=== PATIENT | female | born 1975 | race Caucasian/White ===

== ENCOUNTER 2017-01-04 09:25 | Inpatient (IN) | payer BC ==
[2017-01-04] VITALS (18 sets, daily range): BP systolic 57–126; BP diastolic 39–90; PULSE 74–169; RESP 16–20; TEMP 98.1–98.3; O2SAT 98–100
[~2017-01-04] VITALS: Ht 167.6 cm; Wt 110.0 kg
[2017-01-04] MEDS ORDERED: ADENOSINE IV SOLN 3 MG/ML 2 ML VIAL ONE ×2 (09:38→09:43)
[2017-01-04] MEDS ORDERED: SODIUM CHLOR 0.9% 1000 ML INJ 1,000 ML IV ONE (09:45)
[2017-01-04] MEDS ORDERED: SODIUM CHLORIDE 0.9% FLUSH 10 ML FLUSH IVF PRN (09:45)
--- NOTE | 2017-01-04 09:50 | PD ---
HPI Chief Complaint: Cardiac Complaint Time Seen by Provider: 09:32 Travel History International Travel<30 days: No Contact w/Intl Traveler<30days: No Traveled to known affect area: No History of Present Illness HPI 41-year-old female with history of thyroid cancer status post thyroidectomy, recent increase in her Synthroid 2 weeks ago, hemachromatosis, celiac disease, here for evaluation of tachycardia, lightheadedness, dizziness, generalized malaise. Patient also has had diarrhea and has felt nauseous. Has not vomited. Symptoms started yesterday. She denies chest pain. She does have some slight dyspnea. No fevers or recent illness. Heart rate noted to be in the 160s in triage with a blood pressure of 60/30 and the patient was brought straight back to an exam room where I evaluated her on arrival. She was noted to be in SVT with a rate of 170, and was given 6 mg of IV adenosine with conversion to sinus rhythm with a rate in the 90s. PFSH Past Medical History ?: Not Social History Tobacco Use: No Allergies-Medications (Allergen,Severity, Reaction): Coded Allergies: Tomato (Verified Allergy, Severe, Cramping, 01/04/17) GI CRAMPIMG, GAS BLOAT, SWELLING IN HANDS BLISTERS IN MOUTH BLEEDING GUMS NO GLUTEN, CELIAC DISEASE [place]ugh Nut (Verified Allergy, Intermediate, Wheezing, 01/04/17) ALLERGY TO "PINE" Reported Meds & Prescriptions Reported Meds & Active Scripts Active Reported Multiple Vitamin 1 Tab 1 Tab PO DAILY Synthroid (Levothyroxine Sodium) 112 Mcg Tab 112 Mcg PO DAILY Lisinopril 2.5 Mg Tab 20 Mg PO DAILY Review of Systems Except as stated in HPI: all other systems reviewed are Neg Physical Exam Narrative GENERAL: Well-developed, well-nourished, awake, alert, comfortable, no acute distress. SKIN: Focused skin assessment warm/dry. No rash. No pallor. HEAD: Atraumatic. Normocephalic. EYES: Pupils equal and round. No scleral icterus. No injection or drainage. ENT: Mucous membranes pink and moist. NECK: Trachea midline. No JVD. CARDIOVASCULAR: Tachycardic, regular. RESPIRATORY: No accessory muscle use. Clear to auscultation. Breath sounds equal bilaterally. GASTROINTESTINAL: Abdomen soft, non-tender, nondistended. MUSCULOSKELETAL: No obvious deformities. No clubbing. No cyanosis. No edema. NEUROLOGICAL: Awake and alert. No obvious cranial nerve deficits. Motor grossly within normal limits. Normal speech. PSYCHIATRIC: Appropriate mood and affect; insight and judgment normal. Data Data Last Documented VS Vital Signs Date Time Temp Pulse Resp B/P Pulse Ox O2 Delivery O2 Flow Rate FiO2 01/04/17 11:05 84 20 104/71 100 Room Air 01/04/17 10:44 2 01/04/17 09:27 98.1 Orders Adenosine Inj (Adenocard Inj) (01/04/17 09:38) Adenosine Inj (Adenocard Inj) (01/04/17 09:43) Basic Metabolic Panel (Bmp) (01/04/17 09:45) Ckmb (Isoenzyme) Profile (01/04/17 09:45) Complete Blood Count With Diff (01/04/17 09:45) Magnesium (Mg) (01/04/17 09:45) Prothrombin Time / Inr (Pt) (01/04/17 09:45) Act Partial Throm Time (Ptt) (01/04/17 09:45) Troponin I (01/04/17 09:45) Chest, Single Ap (01/04/17 09:45) Ecg Monitoring (01/04/17 09:45) Iv Access Insert/Monitor (01/04/17 09:45) Oximetry (01/04/17 09:45) Sodium Chloride 0.9% Flush (Ns Flush) (01/04/17 09:45) Sodium Chlor 0.9% 1000 Ml Inj (Ns 1000 M (01/04/17 09:45) Adenosine Inj (Adenocard Inj) (01/04/17 10:00) Aspirin Chew (Aspirin Chew) (01/04/17 10:30) Admit Order (Ed Use Only) (01/04/17 11:13) Labs Laboratory Tests Test 01/04/17 09:40 White Blood Count 12.8 TH/MM3 Red Blood Count 4.99 MIL/MM3 Hemoglobin 13.8 GM/DL Hematocrit 41.5 % Mean Corpuscular Volume 83.2 FL Mean Corpuscular Hemoglobin 27.7 PG Mean Corpuscular Hemoglobin 33.3 % Concent Red Cell Distribution Width 14.6 % Platelet Count 339 TH/MM3 Mean Platelet Volume 10.8 FL Neutrophils (%) (Auto) 71.6 % Lymphocytes (%) (Auto) 18.6 % Monocytes (%) (Auto) 6.4 % Eosinophils (%) (Auto) 2.0 % Basophils (%) (Auto) 1.4 % Neutrophils # (Auto) 9.1 TH/MM3 Lymphocytes # (Auto) 2.4 TH/MM3 Monocytes # (Auto) 0.8 TH/MM3 Eosinophils # (Auto) 0.3 TH/MM3 Basophils # (Auto) 0.2 TH/MM3 CBC Comment AUTO DIFF Differential Comment AUTO DIFF CONFIRMED Prothrombin Time 10.4 SEC Prothromb Time International 0.9 RATIO Ratio Activated Partial 27.0 SEC Thromboplast Time Sodium Level 140 MEQ/L Potassium Level 4.1 MEQ/L Chloride Level 109 MEQ/L Carbon Dioxide Level 22.3 MEQ/L Anion Gap 9 MEQ/L Blood Urea Nitrogen 16 MG/DL Creatinine 1.20 MG/DL Estimat Glomerular Filtration 50 ML/MIN Rate Random Glucose 117 MG/DL Calcium Level 8.6 MG/DL Magnesium Level 1.9 MG/DL Total Creatine Kinase 94 U/L Troponin I 0.34 NG/ML Free Thyroxine 1.06 NG/DL Free Triiodothyronine (T3) 1.78 PG/ML pg/dL [facility] Medical Decision Making Medical Screen Exam Complete: Yes Emergency Medical Condition: Yes Medical Record Reviewed: Yes Interpretation(s) EKG #1: SVT, rate 169, normal axis, normal intervals, nonspecific T-wave abnormality. EKG #2 sinus, rate 87, normal axis, normal intervals, nonspecific T-wave abnormality, no ST segment abnormalities. Differential Diagnosis SVT, metabolic abnormality, anemia, medication induced hyperthyroidism Narrative Course Initial vital signs show heart rate 169, blood pressure 57/39, pulse ox 99% on room air, oral temp of 98.1F Patient was noted to be in SVT on arrival. IV was promptly established, the patient was given 6 mg of IV adenosine with conversion to sinus with a rate in the 90s. Patient reported significant improvement in lightheadedness and shortness of breath. CBC shows WBC 12.8, hemoglobin 13.8, hematocrit 41.5, platelets 339. BMP is remarkable for creatinine 1.2, GFR 50, otherwise essentially unremarkable. Troponin is 0.34. Chest x-ray shows no acute disease. Patient was made aware of all findings. Again she is feeling much improved. Her blood pressure however remains low at 86/42. She is denying ever having any chest pain. Slight elevation in troponin could be secondary to the patient' s heart rate being in the 170s as opposed to NM, however given slight elevated troponin as well as hypotension, patient be admitted for further treatment and evaluation. She was given a full dose of aspirin. Case discussed with hospitalist Dr. Mina. She will like the patient to be admitted to the main hospital [facility]. She would also like me to make cardiology aware of the patient. Diagnosis Primary Impression: SVT (supraventricular tachycardia) Additional Impressions: Elevated troponin Hypotension Qualified Code: I95.9 - Hypotension, unspecified hypotension type Carlos Ross MD Jan 04, 2017 09:50
[2017-01-04 09:55] LABS: AUTOMATED NEUTROPHIL # 9.1 TH/MM3 (1.8-7.7); BASOPHIL # 0.2 TH/MM3 (0-0.2); BASOPHIL % 1.4 % (0.0-2.0); EOSINOPHIL # 0.3 TH/MM3 (0-0.4); HEMATOCRIT 41.5 % (35.0-46.0); LYMPH % 18.6 % (9.0-44.0); LYMPHOCYTE # 2.4 TH/MM3 (1.0-4.8); MEAN CELL VOLUME 83.2 FL (80.0-100.0); MEAN CORPUSCULAR HEMOGLOBIN 27.7 PG (27.0-34.0); MEAN CORPUSCULAR HGB CONC 33.3 % (32.0-36.0); MONO % 6.4 % (0.0-8.0); NEUT % 71.6 % (16.0-70.0); PLATELET COUNT 339 TH/MM3 (150-450); RED BLOOD COUNT 4.99 MIL/MM3 (4.00-5.30); RED CELL DISTRIBUTION WIDTH 14.6 % (11.6-17.2); WHITE BLOOD COUNT 12.8 TH/MM3 (4.0-11.0)
[2017-01-04 09:57] LABS: HEMO FLAGS AUTO DIFF
[2017-01-04] MEDS ORDERED: ADENOSINE IV SOLN 3 MG/ML 2 ML VIAL IV PUSH ONE (10:00)
[2017-01-04 10:04] LABS: BICARBONATE 22.3 MEQ/L (21.0-32.0); MAGNESIUM 1.9 MG/DL (1.5-2.5); POTASSIUM 4.1 MEQ/L (3.5-5.1)
[2017-01-04] MEDS ORDERED: MULTTAB67 PO (10:04)
[2017-01-04] MEDS ORDERED: SYNT112T PO (10:04)
[2017-01-04] MEDS ORDERED: LISI2.5T3 PO (10:04)
--- NOTE | 2017-01-04 10:24 | RADRPT ---
EXAM DATE/TIME: 01/04/2017 10:11 [place] COMPARISON: No previous studies available for comparison. INDICATIONS : Tachycardia, low blood pressure, short of breath. MEDICAL HISTORY : Carcinoma, thyroid. celiac disease SURGICAL HISTORY : thyroidectomy ENCOUNTER: Initial ACUITY: 2 days PAIN SCORE: 0/10 LOCATION: Bilateral chest FINDINGS: A single view of the chest demonstrates the lungs to be symmetrically aerated without evidence of mas s, infiltrate or effusion. The cardiomediastinal contours are unremarkable. Osseous structures are intact. CONCLUSION: 1. No acute cardiopulmonary disease. Mina Velasquez MD on January 04, 2017 at 10:22 Board Certified Radiologist. This report was verified electronically.
[2017-01-04] MEDS ORDERED: ASPIRIN 81 MG CHEW TAB PO ONE (10:30)
[2017-01-04 10:34] LABS: SCAN/DIFF AUTO DIFF CONFIRMED
[2017-01-04 10:43] LABS: INTERNATIONAL NORMALIZED RATIO 0.9 RATIO; PROTHROMBIN TIME - PATIENT 10.4 SEC (9.8-11.6)
[2017-01-04] MEDS ORDERED: LACTULOSE SYRUP 20 GM/30 ML CUP PO PRN (12:30)
[2017-01-04] MEDS ORDERED: MAGNESIUM HYDROXIDE SUSP 30 ML CUP PO PRN (12:30)
[2017-01-04] MEDS ORDERED: ONDANSETRON HCL 4 MG/2 ML VIAL IVP PRN (12:30)
[2017-01-04] MEDS ORDERED: SODIUM CHLORIDE 0.9% FLUSH 10 ML FLUSH IV FLUSH PRN (12:30)
[2017-01-04] MEDS ORDERED: SENNOSIDES 8.6 MG TAB PO PRN (12:30)
[2017-01-04] MEDS ORDERED: BISACODYL 10 MG SUPP RECTAL PRN (12:30)
[2017-01-04] MEDS: ENOXAPARIN SODIUM 40 MG/0.4 ML SYRINGE SQ SCH (13:15)
--- NOTE | 2017-01-04 13:36 | HHI.HP ---
[facility] Primary Care Physician Ana Sylvester M.D. Admission Diagnosis SVT, elevated troponin, hypotension Diagnoses: (1) SVT (supraventricular tachycardia) Diagnosis: Principal (2) Hypotension Diagnosis: Principal (3) Chest discomfort Diagnosis: Principal (4) Elevated troponin Diagnosis: Principal (5) Hypothyroidism Diagnosis: Secondary Chief Complaint: Heart racing, lightheadedness, dizziness, shortness of breath Travel History International Travel<30 Days: No Contact w/Intl Traveler <30 Da: No Traveled to Known Affected Are: No History of Present Illness Written by Jeffrey Marcial, acting as scribe for Dr. Mina on 01/04/17 at 13: 22. This note was transcribed by scribe Jeffrey STORY. I, Dr. Brigid Mina personally performed the history, physical exam, and medical decision making; and confirmed the accuracy of the information in the transcribed note. Authenticated by Dr. Brigid Mina on 01/04/17 at 13:22. 41-year-old female with known history of thyroid cancer status post thyroidectomy, secondary hypothyroidism, hypertension, celiac disease, hemochromatosis who presented to hospital because of heart racing, lightheadedness, dizziness, chest discomfort, shortness of breath. The patient indicates that she is undergoing treatment for her hypothyroidism by recording artist in [place]. Patient indicates that they just suggested her thyroid medications from 88>112 g 2 weeks ago. She has not had follow- up laboratory studies done at this time. Over the last couple of days she has noticed that after she takes her thyroid medication at 4:20 AM every day a few hours later she starts developing chest discomfort, heart racing, lightheadedness, dizziness. She checked her heart rate and blood pressure with the machine home and she had a tachycardia and mild low blood pressure after a while it would resolve and return to normal. She takes her HUYEN inhibitor at 10: 00 at night and her thyroid medication at 420 every morning. This morning she had the same symptoms with a chest discomfort, heart racing, lightheadedness, dizziness, shortness of breath, nausea but no vomiting. She checked her blood pressure however she thought machine is broken because it was registering too low and her heart rate was really high. She notified her to bring her to the hospital for evaluation. Patient was found to have supraventricular tachycardia with heart rate 170s and blood pressure 57/39 the patient was chemically cardioverted with adenosine. Heart rate returned to normal and blood pressure was more appropriate after cardioversion. Laboratory studies do indicate significant elevation in the troponin. Heart rate has remained stable this time. ER physician did contact cardiology who agreed that the patient needed to be admitted to the main hospital. At time evaluating the patient she is feeling quite well. She is no longer experiencing heart racing, chest discomfort, lightheadedness, dizziness, shortness of breath. Review of Systems Constitutional: DENIES: Diaphoretic episodes, Fatigue, Fever, Weight gain, Weight loss, Chills, Dizziness, Change in appetite, Night Sweats Eyes: DENIES: Blurred vision, Diplopia, Eye inflammation, Eye pain, Vision loss , Double Vision Ears, nose, mouth, throat: COMPLAINS OF: Vertigo, Oral lesions, DENIES: Hearing loss, Nasal discharge, Throat pain, Ear Pain, Running Nose, Sinus Pain Respiratory: COMPLAINS OF: Shortness of breath, DENIES: Apneas, Cough, Snoring , Wheezing, Hemoptysis, Sputum production Cardiovascular: COMPLAINS OF: Chest pain, Palpitations, DENIES: Syncope, Dyspnea on Exertion, Lower Extremity Edema, Orthopnea Gastrointestinal: COMPLAINS OF: Nausea, DENIES: Abdominal pain, Black stools, Bloody stools, Constipation, Diarrhea, Vomiting, Difficulty Swallowing, Anorexia Neurologic: DENIES: Abnormal gait, Headache, Localized weakness, Paresthesias, Seizures, Speech Problems, Tremor, Poor Balance Past Family Social History Past Medical History Secondary hypothyroidism History of thyroid cancer Hypertension Celiac disease Hemochromatosis Past Surgical History Thyroidectomy 2 Reported Medications Reported Meds & Active Scripts Active Reported Multiple Vitamin 1 Tab 1 Tab PO DAILY Synthroid (Levothyroxine Sodium) 112 Mcg Tab 112 Mcg PO DAILY Lisinopril 2.5 Mg Tab 20 Mg PO DAILY Allergies: Coded Allergies: No Known Allergies (Unverified , 01/04/17) Family History Reviewed and significant for father having heart disease and diabetes. Social History Patient denies any tobacco, alcohol or illicit drugs. Physical Exam Vital Signs Vital Signs Date Time Temp Pulse Resp B/P Pulse Ox O2 Delivery O2 Flow Rate FiO2 01/04/17 12:12 92 20 100/68 98 Room Air 01/04/17 11:05 84 20 104/71 100 Room Air 01/04/17 10:44 89 16 94/67 100 Nasal Cannula 2 01/04/17 10:07 87 16 100 Nasal Cannula 2 01/04/17 10:06 99 01/04/17 10:00 88 16 78/54 99 Nasal Cannula 2 01/04/17 09:27 98.1 169 16 57/39 99 Physical Exam GENERAL: Well-developed, well-nourished, in no acute distress. alert and orientated HEENT: Head is normocephalic without any lesions or masses noted. Facial features are symmetric. Eyes: Pupils equal round reactive to light. Extraocular muscles are intact. Conjunctivae were clear. Oropharyngeal: Pharynx without any erythema edema. Tongue is midline without deviation. Buccal mucosa is moist without any masses or lesions. Patient does have a erythematous rash noted over her face, cheeks NECK: Supple without any masses. Trachea midline no deviation. No JVD, no bruits are appreciated CARDIAC: Regular rhythm, regular rate. S1/S2 are heard. No murmurs gallops or rubs. LUNGS: Clear to auscultation bilaterally. No wheeze, rhonchi or rales. No use of accessory muscles on inspiration or expiration. ABDOMEN: Soft, nontender. Nondistended. Bowel sounds heard in all 4 quadrants. No organomegaly or masses. Negative rebound, negative guarding EXTREMITIES: No edema, pulses are equal bilaterally. No cyanosis or clubbing NEUROLOGY: Mood and affect appear appropriate. Cranial nerves II through XII grossly intact. Muscle strength 5/5 in upper and lower extremities bilaterally. Deep tendon reflexes are 2+ in upper and lower extremities bilaterally. Laboratory Laboratory Tests Test 01/04/17 01/04/17 09:40 12:40 White Blood Count 12.8 Red Blood Count 4.99 Hemoglobin 13.8 Hematocrit 41.5 Mean Corpuscular Volume 83.2 Mean Corpuscular Hemoglobin 27.7 Mean Corpuscular Hemoglobin 33.3 Concent Red Cell Distribution Width 14.6 Platelet Count 339 Mean Platelet Volume 10.8 Neutrophils (%) (Auto) 71.6 Lymphocytes (%) (Auto) 18.6 Monocytes (%) (Auto) 6.4 Eosinophils (%) (Auto) 2.0 Basophils (%) (Auto) 1.4 Neutrophils # (Auto) 9.1 Lymphocytes # (Auto) 2.4 Monocytes # (Auto) 0.8 Eosinophils # (Auto) 0.3 Basophils # (Auto) 0.2 CBC Comment AUTO DIFF Differential Comment AUTO DIFF CONFIRMED Prothrombin Time 10.4 Prothromb Time International 0.9 Ratio Activated Partial 27.0 Thromboplast Time Sodium Level 140 Potassium Level 4.1 Chloride Level 109 Carbon Dioxide Level 22.3 Anion Gap 9 Blood Urea Nitrogen 16 Creatinine 1.20 Estimat Glomerular Filtration 50 Rate Random Glucose 117 Calcium Level 8.6 Magnesium Level 1.9 Total Creatine Kinase 94 89 Troponin I 0.34 0.60 Result Diagram: 01/04/1740 01/04/17939 Imaging Last Impressions Chest X-Ray 01/04/1745 Signed Impressions: Service Date/Time: Wednesday, January 04, 2017 10:11 - CONCLUSION: 1. No acute cardiopulmonary disease. Mina Velasquez MD Assessment and Plan Assessment and Plan 41-year-old female who presented to hospital because of chest discomfort, heart racing, lightheadedness, dizziness, shortness of breath Chest discomfort, rule out acute coronary syndrome Likely secondary to supraventricular tachycardia, however patient has increased risk factors include age, family history of heart disease and elevated troponin Continue to trend cardiac enzymes which continue to worsen Continue to evaluate serial EKGs Patient was given aspirin in the emergency department Unable to use beta jim and nitroglycerin at this time due to hypotension and low blood pressure Cardiology consultation will need to be promptly done Supraventricular tachycardia, status post chemical cardioversion with adenosine Now in sinus rhythm Deferred management to radio broadcaster Hypothyroidism Patient has had recent dosage change Check TSH, free T3 free T4 Hypertension Patient with low blood pressure this time, will resume blood pressure medication when blood pressure improved DVT prevention Lovenox Physician Certification 2 Midnight Certification Type: Admission for Inpatient Services Order for Inpatient Services The services are ordered in accordance with Medicare regulations or non- Medicare payer requirements, as applicable. In the case of services not specified as inpatient-only, they are appropriately provided as inpatient services in accordance with the 2-midnight benchmark. Estimated LOS (days): 2 days is the estimated time the patient will need to remain in the hospital, assuming treatment plan goals are met and no additional complications. Post-Hospital Plan: Not yet determined Problem Qualifiers (1) Hypotension: Qualified Code: I95.9 - Hypotension, unspecified hypotension type (2) Hypothyroidism: Qualified Code: E89.0 - Postoperative hypothyroidism Jeffrey Marcial Jan 04, 2017 13:36 Brigid Mina MD Jan 04, 2017 19:43
[2017-01-04] MEDS: SODIUM CHLOR 0.9% 1000 ML INJ 1,000 ML IV SCH ×2 (14:00→22:29)
[2017-01-04 16:02] LABS: FREE T3 1.78 PG/ML (2.18-3.98); FREE T4 1.06 NG/DL (0.76-1.46)
[2017-01-04] MEDS: DOCUSATE SODIUM 50 MG/SENNA 8.6 MG TAB PO SCH (21:00)
[2017-01-04] MEDS: SODIUM CHLORIDE 0.9% FLUSH 10 ML FLUSH IV FLUSH SCH (21:00)
[2017-01-04] MEDS ORDERED: LISINOPRIL 20 MG TAB PO SCH (22:00)
--- NOTE | 2017-01-04 23:29 | MB ---
cc: LEO BARTH DO DATE OF CONSULTATION January 04, 2017 REASON FOR CONSULTATION SVT, elevated troponin. HISTORY OF PRESENT ILLNESS Dior Pantoja is a 41-year-old female who presented to [facility] Emergency Room due to palpitations and hypotension. The day before presenting to the emergency room she noted that she has had some palpitations off and on only lasting a few minutes. She was checking her heart rate with her blood pressure machine at home and it was unable to register as it said she was tachycardiac with a low blood pressure. During the episode she was feeling lightheaded but denies chest pain. She does get somewhat short of breath with these. She went to bed and then in the morning she was delivering something to her [id number]'s house and as she was driving away she started getting the palpitations and extremely lightheaded. She returned back to her [id number]'s house and decided that she should come into the emergency room as she did not feel well. On arrival she was found to be in SVT with a heart rate in the 170s and a blood pressure of 57/39. She was given adenosine and converted back to normal sinus rhythm with mild hypotension. I asked that she be transferred to [facility] for further observation. In seeing her she is currently hemodynamically stable without complaints. PAST MEDICAL HISTORY 1. Secondary hypothyroidism. 2. History of thyroid cancer. 3. Hypertension. 4. Celiac disease. 5. Hemochromatosis. PAST SURGICAL HISTORY 1. Thyroidectomy. 2. x2. ALLERGIES NO KNOWN DRUG ALLERGIES. MEDICATIONS 1. Lisinopril 20 milligrams daily. 2. Synthroid 112 micrograms daily (the patient was originally on 88 but had blood work around 4 weeks ago and her doctor increased her dose). FAMILY HISTORY Denies premature coronary artery disease or sudden cardiac within the family. SOCIAL HISTORY Denies tobacco, alcohol or illicit drug abuse. REVIEW OF SYSTEMS 14-systems were reviewed including osteopathic as above, pertinent positives and negatives above otherwise negative. PHYSICAL EXAMINATION VITAL SIGNS: Temperature 98.1, heart rate 86, blood pressure 126/90, respirations 20, pulse ox 100% on room air. GENERAL: In general the patient appears well in no acute distress, alert, awake and oriented x3. Extraocular muscles intact. Mucous membranes moist. NECK: Supple. No JVD at 45 degrees. No carotid bruits heard bilaterally. Carotid upstroke is brisk in nature. HEART: Heart is regular rate and rhythm. Positive first and second heart sounds with no murmurs, gallops or rubs. PMI is nondisplaced. LUNGS: Clear to auscultation bilaterally. No wheezes, rales or rhonchi. ABDOMEN: Abdomen is soft, nontender, nondistended. No organomegaly noted. EXTREMITIES: Show no clubbing, cyanosis or edema. Femoral and distal pulses intact bilaterally. NEUROLOGICALLY: No focal deficits. SKIN: Warm, dry and intact. OSTEOPATHIC: No kyphoscoliosis, lordosis or paraspinal tender points. LABORATORY FINDINGS Hemoglobin 13.8, hematocrit 41.5, platelets 339. Potassium 4.1, BUN 16, creatinine 1.2. Troponin 0.34 increasing to 0.6. TSH 20, free T3 1.78, free T4 1.06. 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 Electrocardiogram (January 04, 2017 at 09:44) sinus rhythm at 87 beats per minute, nonspecific ST-T wave changes. IMPRESSION 1. SVT status post conversion to normal sinus rhythm with adenosine, most likely AVNRT. 2. Hypothyroidism secondary to thyroid surgery for thyroid cancer. 3. Palpitations and shortness of breath secondary to SVT. 4. Elevated troponin most likely secondary to SVT with hypotension. 5. Hypotension secondary to SVT. 6. History of hypertension. 7. Acute kidney injury. RECOMMENDATIONS 1. Mrs. Pantoja appears to have had an episode of SVT which appears to be AVNRT which has been converted with adenosine. 2. We will plan on placing her on low-dose beta jim for now. 3. She will be placed on an aspirin 81 milligrams due to her elevated troponin which I feel is secondary to her SVT and hypotension. 4. Will obtain a 2-D echo to look for overall left ventricular function, cardiac structure and possible valvulopathies. 5. Lisinopril will be held for now until we make sure that her creatinine has stabilized. 6. We will plan a pharmacologic nuclear stress test due to her elevated troponin to rule out underlying coronary artery disease. 7. Depending on her hospital course she will need follow-up inpatient versus outpatient with Dr. Martínez for consideration of AVNRT ablation. Thank you for allowing me to see Dior Pantoja. If there are any questions please do not hesitate to call. Leo Barth DO VGP/EO /10:37 PM /11:09 PM
[2017-01-04] MEDS: METOPROLOL TARTRATE 25 MG TAB PO SCH (23:42)
[2017-01-05] VITALS (24 sets, daily range): BP systolic 100–134; BP diastolic 62–84; PULSE 60–80; RESP 14–21; TEMP 97.4–97.7; O2SAT 98–100
[2017-01-05 02:05] LABS: BETA HCG QUANT LESS THAN 1 MIU/ML (0-5)
[2017-01-05] MEDS: LEVOTHYROXINE SODIUM 112 MCG TAB PO SCH ×2 (04:14→04:34)
[2017-01-05 05:44] LABS: AUTOMATED NEUTROPHIL # 5.6 TH/MM3 (1.8-7.7); BASOPHIL # 0.1 TH/MM3 (0-0.2); BASOPHIL % 0.8 % (0.0-2.0); EOSINOPHIL # 0.3 TH/MM3 (0-0.4); EOSINOPHIL % 3.5 % (0.0-4.0); HEMATOCRIT 35.2 % (35.0-46.0); HEMO FLAGS DIFF FINAL; LYMPH % 25.4 % (9.0-44.0); LYMPHOCYTE # 2.2 TH/MM3 (1.0-4.8); MEAN CORPUSCULAR HEMOGLOBIN 27.3 PG (27.0-34.0); MEAN CORPUSCULAR HGB CONC 31.7 % (32.0-36.0); MONO % 7.1 % (0.0-8.0); NEUT % 63.2 % (16.0-70.0); PLATELET COUNT 236 TH/MM3 (150-450); RED CELL DISTRIBUTION WIDTH 15.3 % (11.6-17.2); WHITE BLOOD COUNT 8.8 TH/MM3 (4.0-11.0)
[2017-01-05 06:00] LABS: ANION GAP 8 MEQ/L (5-15); AST (GOT) 12 U/L (15-37); BICARBONATE 23.7 MEQ/L (21.0-32.0); BLOOD UREA NITROGEN 19 MG/DL (7-18); CHLORIDE 108 MEQ/L (98-107); GLOMERULAR FILTRATION RATE 51 ML/MIN (>89); POTASSIUM 4.1 MEQ/L (3.5-5.1); SODIUM (NA) 140 MEQ/L (136-145)
[2017-01-05 06:01] LABS: ALT (GPT) 25 U/L (10-53)
[2017-01-05 06:04] LABS: ALKALINE PHOSPHATASE 47 U/L (45-117); TOTAL BILIRUBIN ADULT 0.3 MG/DL (0.2-1.0)
[2017-01-05] MEDS: SODIUM CHLOR 0.9% 1000 ML INJ 1,000 ML IV SCH ×2 (08:29→11:16)
[2017-01-05] MEDS ORDERED: LISINOPRIL 20 MG TAB PO SCH (09:00)
[2017-01-05] MEDS ORDERED: LEVOTHYROXINE SODIUM 112 MCG TAB PO SCH (09:00)
[2017-01-05] MEDS: DOCUSATE SODIUM 50 MG/SENNA 8.6 MG TAB PO SCH ×2 (09:00→21:00)
[2017-01-05] MEDS: SODIUM CHLORIDE 0.9% FLUSH 10 ML FLUSH IV FLUSH SCH ×3 (09:00→21:44)
[2017-01-05] MEDS: MULTIVITAMIN TAB PO SCH ×3 (09:00→09:28)
[2017-01-05] MEDS: ASPIRIN 81 MG CHEW TAB CHEW SCH (09:25)
[2017-01-05] MEDS: METOPROLOL TARTRATE 25 MG TAB PO SCH ×2 (09:25→21:44)
--- NOTE | 2017-01-05 10:46 | PD.CARD.PN ---
Subjective Subjective Remarks No events overnight, no chest pain, no shortness of breath Telemetry showing normal sinus rhythm Objective Medications Current Medications Medications (Trade) Dose Ordered Sig/Adelfo Route Start Time Stop Time Status Last Admin (NS 1000 ml Inj) 1,000 ml @ 100 mls/hr Q10H IV 01/04/17 12:29 01/05/17 08:29 (NS Flush) 2 ml UNSCH PRN IV FLUSH 01/04/17 12:30 (NS Flush) 2 ml BID IV FLUSH 01/04/17 21:00 (Tylenol) 650 mg Q4H PRN PO 01/04/17 12:30 (Zofran Inj) 4 mg Q6H PRN IVP 01/04/17 12:30 (Lovenox Inj) 40 mg Q24H SQ 01/04/17 13:00 01/04/17 13:15 (Josi-Colace) 1 tab BID PO 01/04/17 21:00 (Milk Of Magnesia Liq) 30 ml Q12H PRN PO 01/04/17 12:30 (Senokot) 17.2 mg Q12H PRN PO 01/04/17 12:30 (Dulcolax Supp) 10 mg DAILY PRN RECTAL 01/04/17 12:30 (Lactulose Liq) 30 ml DAILY PRN PO 01/04/17 12:30 (Pneumovax-23 Inj) 25 mcg ONCE ONCE IM 01/06/17 15:00 01/06/17 15:01 (Theragran) 1 tab DAILY PO 01/05/17 09:00 (Synthroid) 112 mcg DAILY@07 PO 01/05/17 04:20 01/05/17 04:14 (Prinivil) 20 mg DAILY PO 01/04/17 22:00 Hold 01/04/17 21:55 (Aspirin Chew) 81 mg DAILY CHEW 01/05/17 09:00 01/05/17 09:25 (Lopressor) 12.5 mg Q12HR PO 01/04/17 22:45 01/05/17 09:25 Vital Signs / I&O Vital Signs Date Time Temp Pulse Resp B/P Pulse Ox O2 Delivery O2 Flow Rate FiO2 01/05/17 10:00 71 01/05/17 09:00 72 01/05/17 08:00 72 01/05/17 07:15 69 01/05/17 07:15 70 17 107/71 100 01/05/17 06:00 64 01/05/17 05:00 66 01/05/17 04:16 97.7 77 14 100/62 98 01/05/17 04:00 71 01/05/17 03:00 66 01/05/17 02:00 72 01/05/17 01:00 72 01/05/17 00:00 73 01/04/17 23:57 79 18 108/68 100 01/04/17 23:00 76 01/04/17 22:00 74 01/04/17 21:00 82 01/04/17 20:00 87 01/04/17 20:00 98.3 85 18 112/85 99 01/04/17 20:00 87 01/04/17 19:00 88 01/04/17 18:00 90 01/04/17 18:00 90 01/04/17 17:00 82 01/04/17 17:00 82 01/04/17 16:00 88 01/04/17 16:00 88 01/04/17 15:00 98.1 87 20 126/90 100 01/04/17 15:00 86 01/04/17 15:00 82 01/04/17 14:00 87 01/04/17 13:20 92 20 90/60 98 01/04/17 12:12 92 20 100/68 98 Room Air 01/04/17 11:05 84 20 104/71 100 Room Air 01/04/17 10:44 89 16 94/67 100 Nasal Cannula 2 I/O 01/04/17 01/04/17 01/04/17 01/05/17 01/05/17 01/05/17 07:00 15:00 23:00 07:00 15:00 23:00 Intake Total 1000 ml 927 ml 1372 ml Output Total 650 ml Balance 1000 ml 927 ml 722 ml Intake Oral 600 ml 480 ml IV Total 1000 ml 327 ml 892 ml Output Urine Total 650 ml # Voids 2 # Bowel Movements 0 Physical Exam GENERAL: NAD, AAOx3 SKIN: Warm and dry. HEAD: Atraumatic. Normocephalic. EYES: Pupils equal and round. No scleral icterus. No injection or drainage. ENT: No nasal bleeding or discharge. Mucous membranes pink and moist. NECK: Trachea midline. No JVD. CARDIOVASCULAR: Regular rate and rhythm. RESPIRATORY: No accessory muscle use. Clear to auscultation. Breath sounds equal bilaterally. GASTROINTESTINAL: Abdomen soft, non-tender, nondistended. Hepatic and splenic margins not palpable. MUSCULOSKELETAL: Extremities without clubbing, cyanosis, or edema. No obvious deformities. NEUROLOGICAL: Awake and alert. No obvious cranial nerve deficits. Motor grossly within normal limits. Five out of 5 muscle strength in the arms and legs. Normal speech. PSYCHIATRIC: Appropriate mood and affect; insight and judgment normal. Laboratory Laboratory Tests Test 01/04/17 01/04/17 01/05/17 12:40 18:34 03:29 Total Creatine Kinase 89 U/L 84 U/L Troponin I 0.60 NG/ML 0.59 NG/ML Thyroid Stimulating Hormone 20.200 uIU/ML 3rd Gen Human Chorionic Gonadotropin, LESS THAN 1 Quant MIU/ML White Blood Count 8.8 TH/MM3 Red Blood Count 4.10 MIL/MM3 Hemoglobin 11.2 GM/DL Hematocrit 35.2 % Mean Corpuscular Volume 86.0 FL Mean Corpuscular Hemoglobin 27.3 PG Mean Corpuscular Hemoglobin 31.7 % Concent Red Cell Distribution Width 15.3 % Platelet Count 236 TH/MM3 Mean Platelet Volume 10.9 FL Neutrophils (%) (Auto) 63.2 % Lymphocytes (%) (Auto) 25.4 % Monocytes (%) (Auto) 7.1 % Eosinophils (%) (Auto) 3.5 % Basophils (%) (Auto) 0.8 % Neutrophils # (Auto) 5.6 TH/MM3 Lymphocytes # (Auto) 2.2 TH/MM3 Monocytes # (Auto) 0.6 TH/MM3 Eosinophils # (Auto) 0.3 TH/MM3 Basophils # (Auto) 0.1 TH/MM3 CBC Comment DIFF FINAL Differential Comment Sodium Level 140 MEQ/L Potassium Level 4.1 MEQ/L Chloride Level 108 MEQ/L Carbon Dioxide Level 23.7 MEQ/L Anion Gap 8 MEQ/L Blood Urea Nitrogen 19 MG/DL Creatinine 1.16 MG/DL Estimat Glomerular Filtration 51 ML/MIN Rate Random Glucose 87 MG/DL Calcium Level 8.1 MG/DL Total Bilirubin 0.3 MG/DL Aspartate Amino Transf 12 U/L (AST/SGOT) Alanine Aminotransferase 25 U/L (ALT/SGPT) Alkaline Phosphatase 47 U/L Total Protein 5.7 GM/DL Albumin 3.1 GM/DL Assessment and Plan Problem List: (1) SVT (supraventricular tachycardia) (2) Elevated troponin (3) Hypotension (4) Chest discomfort (5) Hypothyroidism Assessment and Plan 1) SVT, 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 Martínez for consideration of ablation Con't Lopressor Problem Qualifiers (1) Hypotension: Qualified Code: I95.9 - Hypotension, unspecified hypotension type (2) Hypothyroidism: Qualified Code: E89.0 - Postoperative hypothyroidism Leo Suresh DO Jan 05, 2017 10:46
[2017-01-05] MEDS: ENOXAPARIN SODIUM 40 MG/0.4 ML SYRINGE SQ SCH (12:15)
[2017-01-05] MEDS ORDERED: REGADENOSON INJ 0.4 MG/5 ML SYR ONE (13:21)
--- NOTE | 2017-01-05 14:52 | RADRPT ---
EXAM DATE/TIME: 01/05/2017 12:59 [facility] COMPARISON: No previous studies available for comparison. INDICATIONS : Supraventricular tachycardia with shortness of breath and palpitations for one day. Abnormal EKG. DOSE: 31.1 mCi Tc99m Myoview at stress. 10.1 mCi Tc99m Myoview at rest. 0.4 mg Lexiscan STRESS SYMPTOMS: Chest tightness. EJECTION FRACTION: 68% MEDICAL HISTORY : Carcinoma, thyroid. Hypertension. SURGICAL HISTORY : Thyroidectomy. section. ENCOUNTER: Initial ACUITY: 1 day PAIN SCALE: 0/10 LOCATION: Midsternal chest TECHNIQUE: The patient underwent pharmacologic stress with infusion of prescribed dose. Continuous ECG tracing was monitored during stress. Gated SPECT imaging was performed after stress and conventional SPECT i maging was performed at rest. The examination was performed on a SPECT/CT scanner, both attenuation and non-corrected datasets were reviewed. FINDINGS: DISTRIBUTION: The maximum perfused segment at stress is in the inferior wall. PERFUSION STUDY: No significant reversibility. GATED STUDY: There is intact wall motion and thickening without hypokinetic or dyskinetic segments. CONCLUSION: 1. No reversible perfusion defects to suggest ischemia. 2. Normal ejection fraction. RISK CATEGORY: Low (<1% Annual Mortality Rate) Artie Turcios MD on January 05, 2017 at 14:48 Board Certified Radiologist. This report was verified electronically.
--- NOTE | 2017-01-05 15:04 | HHI.PR ---
Subjective Remarks Follow up for SVT, dizziness, lightheadedness, nausea. Patient is doing well. She is undergoing nuclear stress test. Currently, denies any chest pain, shortness of breath, fever, chills. Objective Vitals Vital Signs Date Time Temp Pulse Resp B/P Pulse Ox O2 Delivery O2 Flow Rate FiO2 01/05/17 12:02 60 01/05/17 11:06 97.4 60 18 125/74 100 01/05/17 11:04 100 21 01/05/17 11:00 72 01/05/17 10:00 71 01/05/17 09:00 72 01/05/17 08:00 72 01/05/17 07:15 69 01/05/17 07:15 70 17 107/71 100 01/05/17 06:00 64 01/05/17 05:00 66 01/05/17 04:16 97.7 77 14 100/62 98 01/05/17 04:00 71 01/05/17 03:00 66 01/05/17 02:00 72 01/05/17 01:00 72 01/05/17 00:00 73 01/04/17 23:57 79 18 108/68 100 01/04/17 23:00 76 01/04/17 22:00 74 01/04/17 21:00 82 01/04/17 20:00 87 01/04/17 20:00 98.3 85 18 112/85 99 01/04/17 20:00 87 01/04/17 19:00 88 01/04/17 18:00 90 01/04/17 18:00 90 01/04/17 17:00 82 01/04/17 17:00 82 01/04/17 16:00 88 01/04/17 16:00 88 I/O 01/04/17 01/04/17 01/04/17 01/05/17 01/05/17 01/05/17 06:59 14:59 22:59 06:59 14:59 22:59 Intake Total 1000 ml 927 ml 1372 ml Output Total 650 ml Balance 1000 ml 927 ml 722 ml Intake Oral 600 ml 480 ml IV Total 1000 ml 327 ml 892 ml Output Urine Total 650 ml # Voids 2 # Bowel Movements 0 Result Diagram: 01/05/17 0329 01/05/17328 Imaging Last Impressions Myocardial Perfusion Scan Nuc Med 01/05/17 0000 Signed Impressions: Service Date/Time: Thursday, January 05, 2017 12:59 - CONCLUSION: 1. No reversible perfusion defects to suggest ischemia. 2. Normal ejection fraction. RISK CATEGORY: Low (<1%% Annual Mortality Rate) Artie Turcios MD Chest X-Ray 01/04/17 0945 Signed Impressions: Service Date/Time: Wednesday, January 04, 2017 10:11 - CONCLUSION: 1. No acute cardiopulmonary disease. Mina Velasquez MD Objective Remarks GENERAL: Alert, oriented x 3, NAD. SKIN: Warm and dry. HEAD: Normocephalic. EYES: No scleral icterus. No injection or drainage. NECK: Supple, trachea midline. No JVD or lymphadenopathy. CARDIOVASCULAR: Regular rate and rhythm without murmurs, gallops, or rubs. RESPIRATORY: Breath sounds equal bilaterally. No accessory muscle use. GASTROINTESTINAL: Abdomen soft, non-tender, nondistended. MUSCULOSKELETAL: No cyanosis, or edema. BACK: Nontender without obvious deformity. No CVA tenderness. Procedures None. A/P Problem List: (1) SVT (supraventricular tachycardia) ICD Code: I47.1 Status: Acute (2) Hypotension ICD Code: I95.9 Status: Acute (3) Chest discomfort ICD Code: R07.89 Status: Acute (4) Elevated troponin ICD Code: R74.8 Status: Acute (5) Hypothyroidism ICD Code: E03.9 Status: Acute Assessment and Plan Ms. Pantoja is a 41 year old female with a history of thyroid cancer s/p thyroidectomy who was admitted to the hospital due to SVT, dizziness, lightheadedness, nausea. Patient underwent nuclear stress test on 01/05/2017 which did not show any abnormalities. - Supraventricular tachycardia, likely AVNRT. - Currently in normal sinus rhythm. - Probably needs an EP eval. - Continue metoprolol 12.5 mg by mouth every 12 hours. - Continue aspirin 81 mg daily. - Cardiology is following. - Elevated troponins - likely due to supraventricular tachycardia. - History of recently diagnosed thyroid cancer - s/p Thyroidectomy. - Hemochromatosis - Patient is being followed by Dr. Luis Diaz. - Hypothyroidism - continue levothyroxine 112 g daily. Full code. Lovenox. Problem Qualifiers (1) Hypotension: Qualified Code: I95.9 - Hypotension, unspecified hypotension type (2) Hypothyroidism: Qualified Code: E89.0 - Postoperative hypothyroidism Augie Shaw DO Jan 05, 2017 3:04 pm
--- NOTE | 2017-01-05 16:12 | EKG ---
Date Performed: 01/04/2017 Time Performed: 21:24:46 PTAGE: 41 years EKG: Sinus rhythm . Poor R wave progression - probable normal variant Anterior T wave changes are nonspecific Low QRS v oltages in precordial leads Baseline artifact Borderline ECG PREVIOUS TRACING : 01/04/2017 13.15 Compared to prior tracing no significant change DOCTOR: Leo Suresh Interpretating Date/Time 01/05/2017 16:11:49
--- NOTE | 2017-01-05 16:54 | EKG ---
Date Performed: 01/04/2017 Time Performed: 13:15:58 PTAGE: 41 years EKG: Sinus rhythm NONSPECIFIC T-WAVE ABNORMALITY BORDERLINE ECG PREVIOUS TRACING : 01/04/2017 09.44 Compared to prior tracing no significant change DOCTOR: Leo Suresh Interpretating Date/Time 01/05/2017 16:53:09
--- NOTE | 2017-01-05 17:03 | EKG ---
Date Performed: 01/04/2017 Time Performed: 09:44:23 PTAGE: 41 years EKG: Sinus rhythm NONSPECIFIC T-WAVE ABNORMALITY BORDERLINE ECG PREVIOUS TRACING : 01/04/2017 09.35 Compared to the previous tracing, sinus rhythm has replaced SVT DOCTOR: Leo Suresh Interpretating Date/Time 01/05/2017 17:02:10
--- NOTE | 2017-01-05 17:04 | EKG ---
Date Performed: 01/04/2017 Time Performed: 09:35:56 PTAGE: 41 years EKG: SUPRAVENTRICULAR TACHYCARDIA, POSSIBLE AVNRT NONSPECIFIC T-WAVE ABNORMALITY ABNORMAL RHYTHM ECG NO PREVIOUS TRACING DOCTOR: Leo Suresh Interpretating Date/Time 01/05/2017 17:02:28
[2017-01-05] MEDS: ACETAMINOPHEN 325 MG TAB PO PRN (21:44)
[2017-01-06] VITALS (22 sets, daily range): BP systolic 116–128; BP diastolic 73–83; PULSE 53–91; RESP 14–20; TEMP 97.5–98.4; O2SAT 98–100
[2017-01-06] MEDS: SODIUM CHLOR 0.9% 1000 ML INJ 1,000 ML IV SCH ×2 (04:21→14:29)
[2017-01-06] MEDS: LEVOTHYROXINE SODIUM 112 MCG TAB PO SCH (04:32)
[2017-01-06] MEDS: ACETAMINOPHEN 325 MG TAB PO PRN (06:30)
[2017-01-06] MEDS: ASPIRIN 81 MG CHEW TAB CHEW SCH (08:40)
[2017-01-06] MEDS: METOPROLOL TARTRATE 25 MG TAB PO SCH (08:40)
[2017-01-06] MEDS: DOCUSATE SODIUM 50 MG/SENNA 8.6 MG TAB PO SCH ×2 (08:41→21:00)
[2017-01-06] MEDS: MULTIVITAMIN TAB PO SCH (08:41)
--- NOTE | 2017-01-06 11:44 | PD.CARD.PN ---
Subjective Subjective Remarks No events overnight No chest pain, no shortness of breath +back pain Objective Medications Current Medications Medications (Trade) Dose Ordered Sig/Adelfo Route Start Time Stop Time Status Last Admin (NS 1000 ml Inj) 1,000 ml @ 100 mls/hr Q10H IV 01/04/17 12:29 01/05/17 11:16 (NS Flush) 2 ml UNSCH PRN IV FLUSH 01/04/17 12:30 (NS Flush) 2 ml BID IV FLUSH 01/04/17 21:00 01/05/17 21:44 (Tylenol) 650 mg Q4H PRN PO 01/04/17 12:30 01/06/17 06:30 (Zofran Inj) 4 mg Q6H PRN IVP 01/04/17 12:30 (Lovenox Inj) 40 mg Q24H SQ 01/04/17 13:00 01/04/17 13:15 (Josi-Colace) 1 tab BID PO 01/04/17 21:00 (Milk Of Magnesia Liq) 30 ml Q12H PRN PO 01/04/17 12:30 (Senokot) 17.2 mg Q12H PRN PO 01/04/17 12:30 (Dulcolax Supp) 10 mg DAILY PRN RECTAL 01/04/17 12:30 (Lactulose Liq) 30 ml DAILY PRN PO 01/04/17 12:30 (Pneumovax-23 Inj) 25 mcg ONCE ONCE IM 01/06/17 15:00 01/06/17 15:01 (Theragran) 1 tab DAILY PO 01/05/17 09:00 (Synthroid) 112 mcg DAILY@07 PO 01/05/17 04:20 01/06/17 04:32 (Prinivil) 20 mg DAILY PO 01/04/17 22:00 Hold 01/04/17 21:55 (Aspirin Chew) 81 mg DAILY CHEW 01/05/17 09:00 01/06/17 08:40 (Lopressor) 12.5 mg Q12HR PO 01/04/17 22:45 01/06/17 08:40 (Flexeril) 10 mg Q8HR PO 01/06/17 12:00 (Ultram) 50 mg Q8HR PRN PO 01/06/17 11:30 Vital Signs / I&O Vital Signs Date Time Temp Pulse Resp B/P Pulse Ox O2 Delivery O2 Flow Rate FiO2 01/06/17 11:00 97.6 72 19 126/83 100 01/06/17 11:00 53 01/06/17 10:00 67 01/06/17 09:00 72 01/06/17 08:12 19 01/06/17 08:00 76 01/06/17 07:15 91 01/06/17 07:00 97.5 73 20 122/77 100 01/06/17 06:00 73 01/06/17 04:30 98.4 63 18 128/73 99 01/06/17 04:00 01/06/17 04:00 80 01/06/17 00:00 75 01/05/17 23:00 97.5 75 18 108/64 99 01/05/17 23:00 80 01/05/17 22:00 78 01/05/17 20:00 70 01/05/17 20:00 97.5 70 18 118/76 100 01/05/17 18:01 73 01/05/17 17:55 99 21 01/05/17 17:44 79 01/05/17 16:00 80 01/05/17 15:00 97.7 80 21 134/84 100 01/05/17 15:00 75 01/05/17 12:02 60 I/O 01/05/17 01/05/17 01/05/17 01/06/17 01/06/17 01/06/17 07:00 15:00 23:00 07:00 15:00 23:00 Intake Total 1372 ml 1130 ml 240 ml Output Total 650 ml 1500 ml Balance 722 ml -370 ml 240 ml Intake Oral 480 ml 120 ml 240 ml IV Total 892 ml 1010 ml Output Urine Total 650 ml 1500 ml # Voids 3 # Bowel Movements 0 1 0 Physical Exam GENERAL: NAD, AAOx3 SKIN: Warm and dry. HEAD: Atraumatic. Normocephalic. EYES: Pupils equal and round. No scleral icterus. No injection or drainage. ENT: No nasal bleeding or discharge. Mucous membranes pink and moist. NECK: Trachea midline. No JVD. CARDIOVASCULAR: Regular rate and rhythm. RESPIRATORY: No accessory muscle use. Clear to auscultation. Breath sounds equal bilaterally. GASTROINTESTINAL: Abdomen soft, non-tender, nondistended. Hepatic and splenic margins not palpable. MUSCULOSKELETAL: Extremities without clubbing, cyanosis, or edema. No obvious deformities. NEUROLOGICAL: Awake and alert. No obvious cranial nerve deficits. Motor grossly within normal limits. Five out of 5 muscle strength in the arms and legs. Normal speech. PSYCHIATRIC: Appropriate mood and affect; insight and judgment normal. 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 Martínez, EP cardiology, to see the patient and consider ablation tomorrow Problem Qualifiers (1) Hypotension: Qualified Code: I95.9 - Hypotension, unspecified hypotension type (2) Hypothyroidism: Qualified Code: E89.0 - Postoperative hypothyroidism Leo Suresh DO Jan 06, 2017 11:44
[2017-01-06] MEDS: traMADol HCL 50 MG TAB PO PRN ×2 (11:50→21:39)
[2017-01-06] MEDS: CYCLOBENZAPRINE HCL 10 MG TAB PO SCH ×3 (12:41→21:38)
[2017-01-06] MEDS: ENOXAPARIN SODIUM 40 MG/0.4 ML SYRINGE SQ SCH (12:41)
--- NOTE | 2017-01-06 13:55 | HHI.PR ---
Subjective Remarks Follow-up for symptomatic supraventricular tachycardia. Patient is currently doing well. She is in sinus rhythm. No chest pain, shortness of breath, fever or chills. Objective Vitals Vital Signs Date Time Temp Pulse Resp B/P Pulse Ox O2 Delivery O2 Flow Rate FiO2 01/06/17 12:41 20 01/06/17 12:00 75 01/06/17 11:00 97.6 72 19 126/83 100 01/06/17 11:00 53 01/06/17 10:00 67 01/06/17 09:00 72 01/06/17 08:12 19 01/06/17 08:00 76 01/06/17 07:15 91 01/06/17 07:00 97.5 73 20 122/77 100 01/06/17 06:00 73 01/06/17 04:30 98.4 63 18 128/73 99 01/06/17 04:00 01/06/17 04:00 80 01/06/17 00:00 75 01/05/17 23:00 97.5 75 18 108/64 99 01/05/17 23:00 80 01/05/17 22:00 78 01/05/17 20:00 70 01/05/17 20:00 97.5 70 18 118/76 100 01/05/17 18:01 73 01/05/17 17:55 99 21 01/05/17 17:44 79 01/05/17 16:00 80 01/05/17 15:00 97.7 80 21 134/84 100 01/05/17 15:00 75 I/O 01/05/17 01/05/17 01/05/17 01/06/17 01/06/17 01/06/17 07:00 15:00 23:00 07:00 15:00 23:00 Intake Total 1372 ml 1130 ml 240 ml Output Total 650 ml 1500 ml Balance 722 ml -370 ml 240 ml Intake Oral 480 ml 120 ml 240 ml IV Total 892 ml 1010 ml Output Urine Total 650 ml 1500 ml # Voids 3 # Bowel Movements 0 1 0 Result Diagram: 01/05/17 0329 01/05/17 0329 Imaging Last Impressions Myocardial Perfusion Scan Nuc Med 01/05/17 0000 Signed Impressions: Service Date/Time: Thursday, January 05, 2017 12:59 - CONCLUSION: 1. No reversible perfusion defects to suggest ischemia. 2. Normal ejection fraction. RISK CATEGORY: Low (<1%% Annual Mortality Rate) Artie Turcios MD Chest X-Ray 01/04/17 0945 Signed Impressions: Service Date/Time: Saturday, January 04, 2017 10:11 - CONCLUSION: 1. No acute cardiopulmonary disease. Mina Velasquez MD Objective Remarks GENERAL: Alert, oriented x 3, NAD. SKIN: Warm and dry. HEAD: Normocephalic. EYES: No scleral icterus. No injection or drainage. NECK: Supple, trachea midline. No JVD or lymphadenopathy. CARDIOVASCULAR: Regular rate and rhythm without murmurs, gallops, or rubs. RESPIRATORY: Breath sounds equal bilaterally. No accessory muscle use. GASTROINTESTINAL: Abdomen soft, non-tender, nondistended. MUSCULOSKELETAL: No cyanosis, or edema. BACK: Nontender without obvious deformity. No CVA tenderness. Procedures None. A/P Problem List: (1) SVT (supraventricular tachycardia) ICD Code: I47.1 Status: Acute (2) Hypotension ICD Code: I95.9 Status: Acute (3) Chest discomfort ICD Code: R07.89 Status: Acute (4) Elevated troponin ICD Code: R74.8 Status: Acute (5) Hypothyroidism ICD Code: E03.9 Status: Acute Assessment and Plan Ms. Pantoja is a 41 year old female with a history of thyroid cancer s/p thyroidectomy who was admitted to the hospital due to SVT, dizziness, lightheadedness, nausea. Patient underwent nuclear stress test on 01/05/2017 which did not show any abnormalities. - Supraventricular tachycardia, likely AVNRT. - Currently in normal sinus rhythm. - Electrophysiology evaluation likely on 01/07/2017. Patient may need an ablation. - Continue metoprolol 12.5 mg by mouth every 12 hours. - Continue aspirin 81 mg daily. - Cardiology is following. - Elevated troponins - likely due to supraventricular tachycardia. - History of recently diagnosed thyroid cancer - s/p Thyroidectomy. - Hemochromatosis - Patient is being followed by Dr. Luis Diaz. - Hypothyroidism - continue levothyroxine 112 g daily. - Chronic back pain, muscle spasm - We'll start patient on Flexeril 10 mg 3 times a day when necessary, tramadol 50 mg every 8 hours when necessary Full code. Lovenox. Problem Qualifiers (1) Hypotension: Qualified Code: I95.9 - Hypotension, unspecified hypotension type (2) Hypothyroidism: Qualified Code: E89.0 - Postoperative hypothyroidism Augie Shaw DO Jan 06, 2017 1:55 pm
[2017-01-06] MEDS ORDERED: traMADol HCL 50 MG TAB PO PRN (14:00)
[2017-01-06] MEDS ORDERED: CYCLOBENZAPRINE HCL 10 MG TAB PO SCH (14:00)
[2017-01-06] MEDS ORDERED: PNEUMOCOCCAL POLYVALENT INJ 25 MCG/0.5 ML SYR IM ONE (15:00)
--- NOTE | 2017-01-06 15:58 | ECHRPT ---
Indication: Supraventricular tachycardia CONCLUSIONS Normal left ventricular size and wall thickness. The left ventricular systolic function is normal wi th an estimated ejection fraction in the range of 60-65%. Left ventricular diastolic function parameters a re normal. There is trace tricuspid valve regurgitation. The estimated pulmonary arterial pressure is 27 mmHg. BP: / HR: 73 Rhythm: Sinus MEASUREMENTS (Male / Female) Normal Values Technical Quality:Good 2D ECHO LV Diastolic Diameter PLAX 4.5 cm 4.2 - 5.9 / 3.9 - 5.3 cm LV Systolic Diameter PLAX 3.2 cm IVS Diastolic Thickness 1.0 cm 0.6 - 1.0 / 0.6 - 0.9 cm LVPW Diastolic Thickness 1.0 cm 0.6 - 1.0 / 0.6 - 0.9 cm LV Relative Wall Thickness 0.4 LVOT Diameter 2.0 cm M-MODE Aortic Root Diameter MM 2.9 cm LA Systolic Diameter MM 3.3 cm LA Ao Ratio MM 1.1 AV Cusp Separation MM 2.1 cm DOPPLER AV Peak Velocity 121.0 cm/s AV Peak Gradient 5.9 mmHg LVOT Peak Velocity 119.0 cm/s LVOT Peak Gradient 5.7 mmHg AV Area Cont Eq pk 3.1 cm Mitral E Point Velocity 114.0 cm/s Mitral A Point Velocity 68.6 cm/s Mitral E to A Ratio 1.7 LV E' Lateral Velocity 13.5 cm/s Mitral E to LV E' Lateral Ratio 8.4 LV E' Septal Velocity 15.8 cm/s Mitral E to LV E' Septal Ratio 7.2 TR Peak Velocity 206.0 cm/s TR Peak Gradient 17.0 mmHg PV Peak Velocity 102.0 cm/s PV Peak Gradient 4.2 mmHg FINDINGS LEFT VENTRICLE Normal left ventricular size and wall thickness. The left ventricular systolic function is normal wi th an estimated ejection fraction in the range of 60-65%. Left ventricular diastolic function parameters a re normal. RIGHT VENTRICLE Normal right ventricular size and systolic function. LEFT ATRIUM The left atrial size is normal. RIGHT ATRIUM The right atrial size is normal. ATRIAL SEPTUM Normal atrial septal thickness without atrial level shunting by limited color doppler interrogation. AORTA The aortic root and proximal ascending aorta are normal in size on limited imaging. MITRAL VALVE Structurally normal mitral valve. No mitral valve stenosis or regurgitation. AORTIC VALVE Trileaflet aortic valve. No aortic valve stenosis or regurgitation. TRICUSPID VALVE There is trace tricuspid valve regurgitation. The estimated pulmonary arterial pressure is 27 mmHg. PULMONARY VALVE The pulmonary valve is not well visualized. VESSELS The inferior vena cava is normal in size. PERICARDIUM No pericardial effusion. Marty Lozano MD (Electronically Signed) Final Date:06 January 2017 15:57
--- NOTE | 2017-01-06 20:22 | MB ---
cc: MATTHEW SNELL M.D. DATE OF CONSULTATION: 01/06/2017. REASON FOR CONSULTATION: Electrophysiology consult for supraventricular tachycardia. HISTORY OF PRESENT ILLNESS: Mrs. Pantoja is a 41-year-old female with history of obesity, thyroid cancer, surgery was done at the beginning of October. They are still trying to titrate her thyroid medication. Her TSH currently is over 20. She was admitted to the emergency room due to episode of tachyarrhythmia. She was found to be in narrow complex tachyarrhythmia. Adenosine was given and converted into sinus rhythm. Echocardiogram showed normal ejection fraction. Exercise stress study was negative. Her troponin was 0.6, since then asymptomatic. During conversation with Mrs. Pantoja, she refers some episodes of anxiety in the past since around high school but no clear palpitations or tachyarrhythmia. I had a long conversation with Mrs. Pantoja. The chart was reviewed. She was evaluated. ALLERGIES: None. SOCIAL HISTORY: Negative for smoking, drinks three to four times a week. FAMILY HISTORY: Not significant for her current medical condition. MEDICATIONS: Currently the patient is on: 1. Acetaminophen. 2. Aspirin. 3. Flexeril PRN. 4. Lovenox subcutaneous. 5. Lisinopril. 6. Metoprolol. 7. milligrams q. 12 hours. 8. A multivitamin 9. Tramadol. REVIEW OF SYSTEMS: On review of systems, she refers no chest pain. No palpitations. No vomiting. No fever. PHYSICAL EXAMINATION: GENERAL: Alert, fully oriented. VITAL SIGNS: Blood pressure currently is 116/81, pulse 73, respiratory rate 70. LUNGS: Ventilated. CARDIOVASCULAR: S1 and S2 regular. ABDOMEN: Abdomen soft, no mass. No bruits. EXTREMITIES: No edema. Electrocardiogram on hospitalization shows a short ___ tachyarrhythmia. Subsequent Electrocardiogram shows sinus rhythm and no pre-excitation. LABORATORY DATA: Her test is negative. Hemoglobin is 11.2, white blood cell is 8.8. Potassium 4.1, creatinine 1.16. Troponin is 0.59. TSH 20.22. Free T3 is 1.78, T4 is 1.06. INR 0.9. ASSESSMENT AND RECOMMENDATIONS: Mrs. Pantoja has had multiple episodes of supraventricular tachyarrhythmia. The first one she remembers clearly was around May or May. Since then she has had multiple other episodes. She has had thyroid cancer and had surgery in October. They are still trying to titrate her thyroid medication. There is no sign of hyperthyroidism at this point. As mentioned before, this is her third or fourth episode of tachyarrhythmia. I had a long conversation with her and the gentleman who was at bedside. I discussed with her the option of wait and see to see if her tachyarrhythmia and re-evaluate her thyroid in the future or electrophysiology study and ablation. At that point, Ms. Pantoja wants to proceed with electrophysiology study and possible ablation. It is less likely that the thyroid medication is influencing the tachyarrhythmia. The tachyarrhythmia resolved with adenosine, that medication of possible re-entrant tachyarrhythmia. Electrophysiology study and ablation were discussed. The risks, the nature and the benefits of the procedure were clearly stated to her. The risks include pneumothorax, cardiac perforation, stroke, need for open heart surgery and even . The patient understands and agrees to proceed. I will keep her NPO after midnight. Electrophysiology study and possible ablation tomorrow. MD DINO Vazquez/YVONNE /7:56 PM /8:05 PM
[2017-01-06] MEDS: SODIUM CHLORIDE 0.9% FLUSH 10 ML FLUSH IV FLUSH SCH (21:38)
[2017-01-06] MEDS ORDERED: SODIUM CHLORID 0.9% 500 ML IV PRN (23:15)
[2017-01-06] MEDS ORDERED: POVIDONE IODINE 5% (ANTISEPSIS KIT) 4 APPLICATIONS EACH NARE PRN (23:15)
[2017-01-06] MEDS ORDERED: LACTATED RINGER'S 1000 ML IV PRN (23:15)
[2017-01-06] MEDS ORDERED: CHLORHEXIDINE GLUCONATE 2 % 1 PACK (2 CLOTHS) TOPICAL PRN (23:15)
[2017-01-06] MEDS ORDERED: METOPROLOL TARTRATE 25 MG TAB PO PRN (23:15)
[2017-01-06] MEDS ORDERED: INSULIN HUMAN REGULAR 1,000 UNITS/10 ML VIAL SQ PRN (23:15)
[2017-01-07] VITALS (25 sets, daily range): BP systolic 111–132; BP diastolic 64–83; PULSE 68–92; RESP 14–20; TEMP 97.8–98.6; O2SAT 95–100
[2017-01-07] MEDS: SODIUM CHLOR 0.9% 1000 ML INJ 1,000 ML IV SCH ×3 (00:29→20:29)
[2017-01-07] MEDS: LEVOTHYROXINE SODIUM 112 MCG TAB PO SCH (04:24)
[2017-01-07] MEDS: CYCLOBENZAPRINE HCL 10 MG TAB PO SCH ×3 (06:05→21:23)
[2017-01-07] MEDS: ASPIRIN 81 MG CHEW TAB CHEW SCH (07:08)
[2017-01-07] MEDS: DOCUSATE SODIUM 50 MG/SENNA 8.6 MG TAB PO SCH ×2 (08:25→21:23)
[2017-01-07] MEDS: SODIUM CHLORIDE 0.9% FLUSH 10 ML FLUSH IV FLUSH SCH ×2 (08:25→21:23)
[2017-01-07] MEDS: MULTIVITAMIN TAB PO SCH (08:25)
--- NOTE | 2017-01-07 10:09 | HHI.PR ---
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 Patient is currently doing well. No chest pain, shortness of breath, fever or chills. She remains in sinus rhythm. Dr. Martínez evaluated patient yesterday and today. She will likely undergo EP study tomorrow. Objective Vitals Vital Signs Date Time Temp Pulse Resp B/P Pulse Ox O2 Delivery O2 Flow Rate FiO2 01/07/17 10:00 82 01/07/17 09:00 71 01/07/17 08:00 87 01/07/17 07:00 70 01/07/17 07:00 98.4 75 20 121/83 100 01/07/17 06:00 70 01/07/17 05:00 68 01/07/17 04:00 73 14 117/78 96 01/07/17 04:00 72 01/07/17 03:00 74 01/07/17 02:00 72 01/07/17 01:00 80 01/07/17 00:59 98.6 77 14 116/74 97 01/07/17 00:00 80 01/06/17 23:00 74 01/06/17 22:00 74 01/06/17 21:00 80 01/06/17 20:00 74 14 123/77 98 01/06/17 20:00 72 01/06/17 19:00 77 01/06/17 18:00 76 01/06/17 17:05 73 01/06/17 16:07 69 01/06/17 15:05 73 01/06/17 15:05 98.4 68 17 116/81 100 01/06/17 14:00 71 01/06/17 13:00 74 01/06/17 12:41 20 01/06/17 12:00 75 01/06/17 11:00 97.6 72 19 126/83 100 01/06/17 11:00 53 I/O 01/06/17 01/06/17 01/06/17 01/07/17 01/07/17 01/07/17 07:00 15:00 23:00 07:00 15:00 23:00 Intake Total 240 ml 960 ml 480 ml Balance 240 ml 960 ml 480 ml Intake Oral 240 ml 960 ml 480 ml # Voids 3 3 2 # Bowel Movements 0 0 Result Diagram: 01/05/17 0329 01/05/17 0329 Imaging Last Impressions Myocardial Perfusion Scan Nuc Med 01/05/17 0000 Signed Impressions: Service Date/Time: Thursday, January 05, 2017 12:59 - CONCLUSION: 1. No reversible perfusion defects to suggest ischemia. 2. Normal ejection fraction. RISK CATEGORY: Low (<1%% Annual Mortality Rate) Artie Turcios MD Chest X-Ray 01/04/17 0945 Signed Impressions: Service Date/Time: Wednesday, January 04, 2017 10:11 - CONCLUSION: 1. No acute cardiopulmonary disease. Mina Velasquez MD Objective Remarks GENERAL: Alert, oriented x 3, NAD. SKIN: Warm and dry. HEAD: Normocephalic. EYES: No scleral icterus. No injection or drainage. NECK: Supple, trachea midline. No JVD or lymphadenopathy. CARDIOVASCULAR: Regular rate and rhythm without murmurs, gallops, or rubs. RESPIRATORY: Breath sounds equal bilaterally. No accessory muscle use. GASTROINTESTINAL: Abdomen soft, non-tender, nondistended. MUSCULOSKELETAL: No cyanosis, or edema. BACK: Nontender without obvious deformity. No CVA tenderness. Procedures None. A/P Problem List: (1) SVT (supraventricular tachycardia) ICD Code: I47.1 Status: Acute (2) Hypotension ICD Code: I95.9 Status: Acute (3) Chest discomfort ICD Code: R07.89 Status: Acute (4) Elevated troponin ICD Code: R74.8 Status: Acute (5) Hypothyroidism ICD Code: E03.9 Status: Acute Assessment and Plan Ms. Pantoja is a 41 year old female with a history of thyroid cancer s/p thyroidectomy who was admitted to the hospital due to SVT, dizziness, lightheadedness, nausea. Patient underwent nuclear stress test on 01/05/2017 which did not show any abnormalities. - Supraventricular tachycardia, likely AVNRT. - Currently in normal sinus rhythm. - Electrophysiology evaluation likely on 01/08/2017. Patient may need an ablation. - Continue metoprolol 12.5 mg by mouth every 12 hours. - Continue aspirin 81 mg daily. - Cardiology is following. - Elevated troponins - likely due to supraventricular tachycardia. No chest pain. - History of recently diagnosed thyroid cancer - s/p Thyroidectomy. - Hemochromatosis - Patient is being followed by Dr. Luis Diaz. - Hypothyroidism - continue levothyroxine 112 g daily. - Chronic back pain, muscle spasm - Continue Flexeril 10 mg 3 times a day when necessary, tramadol 50 mg every 8 hours when necessary Full code. Lovenox on hold. Problem Qualifiers (1) Hypotension: Qualified Code: I95.9 - Hypotension, unspecified hypotension type (2) Hypothyroidism: Qualified Code: E89.0 - Postoperative hypothyroidism Augie Shaw DO Jan 07, 2017 10:08 am
[2017-01-07] MEDS: ACETAMINOPHEN 325 MG TAB PO PRN (14:36)
--- NOTE | 2017-01-07 17:36 | PD.CARD.PN ---
Subjective Subjective Remarks Patient seen this morning No complaints No events on telemetry Objective Medications Current Medications Medications (Trade) Dose Ordered Sig/Adelfo Route Start Time Stop Time Status Last Admin (NS 1000 ml Inj) 1,000 ml @ 100 mls/hr Q10H IV 01/04/17 12:29 01/05/17 11:16 (NS Flush) 2 ml UNSCH PRN IV FLUSH 01/04/17 12:30 (NS Flush) 2 ml BID IV FLUSH 01/04/17 21:00 01/06/17 21:38 (Tylenol) 650 mg Q4H PRN PO 01/04/17 12:30 01/07/17 14:36 (Zofran Inj) 4 mg Q6H PRN IVP 01/04/17 12:30 (Lovenox Inj) 40 mg Q24H SQ 01/04/17 13:00 Hold 01/06/17 12:41 (Josi-Colace) 1 tab BID PO 01/04/17 21:00 (Milk Of Magnesia Liq) 30 ml Q12H PRN PO 01/04/17 12:30 (Senokot) 17.2 mg Q12H PRN PO 01/04/17 12:30 (Dulcolax Supp) 10 mg DAILY PRN RECTAL 01/04/17 12:30 (Lactulose Liq) 30 ml DAILY PRN PO 01/04/17 12:30 (Theragran) 1 tab DAILY PO 01/05/17 09:00 (Synthroid) 112 mcg DAILY@07 PO 01/05/17 04:20 01/07/17 04:24 (Prinivil) 20 mg DAILY PO 01/04/17 22:00 Hold 01/04/17 21:55 (Aspirin Chew) 81 mg DAILY CHEW 01/05/17 09:00 01/07/17 07:08 (Lopressor) 12.5 mg Q12HR PO 01/04/17 22:45 Hold 01/06/17 08:40 (Flexeril) 10 mg Q8HR PO 01/06/17 12:00 01/07/17 14:23 Tramadol HCl 50 mg 50 mg Q8HR PRN PO 01/06/17 11:30 01/06/17 21:39 Lactated Ringer's 1,000 ml @ 30 mls/hr Q24H PRN IV 01/06/17 23:15 01/09/17 23:14 (NS 500 ml Inj) 500 ml @ 30 mls/hr [id number] PRN IV 01/06/17 23:15 01/09/17 23:14 Vital Signs / I&O Vital Signs Date Time Temp Pulse Resp B/P Pulse Ox O2 Delivery O2 Flow Rate FiO2 01/07/17 17:00 74 01/07/17 16:00 76 01/07/17 15:00 78 01/07/17 15:00 97.8 79 20 122/78 99 01/07/17 14:00 78 01/07/17 13:00 92 01/07/17 12:00 79 01/07/17 11:00 98.3 87 20 122/78 98 01/07/17 11:00 77 01/07/17 10:00 82 01/07/17 09:00 71 01/07/17 08:00 87 01/07/17 07:00 70 01/07/17 07:00 98.4 75 20 121/83 100 01/07/17 06:00 70 01/07/17 05:00 68 01/07/17 04:00 73 14 117/78 96 01/07/17 04:00 72 01/07/17 03:00 74 01/07/17 02:00 72 01/07/17 01:00 80 01/07/17 00:59 98.6 77 14 116/74 97 01/07/17 00:00 80 01/06/17 23:00 74 01/06/17 22:00 74 01/06/17 21:00 80 01/06/17 20:00 74 14 123/77 98 01/06/17 20:00 72 01/06/17 19:00 77 01/06/17 18:00 76 I/O 01/06/17 01/06/17 01/06/17 01/07/17 01/07/17 01/07/17 07:00 15:00 23:00 07:00 15:00 23:00 Intake Total 240 ml 960 ml 480 ml 1080 ml Balance 240 ml 960 ml 480 ml 1080 ml Intake Oral 240 ml 960 ml 480 ml 1080 ml # Voids 3 3 2 4 # Bowel Movements 0 0 Physical Exam GENERAL: NAD, AAOx3 SKIN: Warm and dry. HEAD: Atraumatic. Normocephalic. EYES: Pupils equal and round. No scleral icterus. No injection or drainage. ENT: No nasal bleeding or discharge. Mucous membranes pink and moist. NECK: Trachea midline. No JVD. CARDIOVASCULAR: Regular rate and rhythm. RESPIRATORY: No accessory muscle use. Clear to auscultation. Breath sounds equal bilaterally. GASTROINTESTINAL: Abdomen soft, non-tender, nondistended. Hepatic and splenic margins not palpable. MUSCULOSKELETAL: Extremities without clubbing, cyanosis, or edema. No obvious deformities. NEUROLOGICAL: Awake and alert. No obvious cranial nerve deficits. Motor grossly within normal limits. Five out of 5 muscle strength in the arms and legs. Normal speech. PSYCHIATRIC: Appropriate mood and affect; insight and judgment normal. Assessment and Plan Problem List: (1) SVT (supraventricular tachycardia) (2) Elevated troponin (3) Hypotension (4) Chest discomfort (5) Hypothyroidism Assessment and Plan 1) SVT, appears to be AVNRT, converted with Adenosine 2) Hypotension (60/40) with heart rates in the 170s on arrival 3) Elevated troponin secondary to SVT and hypotension 4) Stress test showing no ischemia 5) EF 60-65% 6) Will defer to Dr. Martínez for arrhythmia management with plan for EP study tomorrow Problem Qualifiers (1) Hypotension: Qualified Code: I95.9 - Hypotension, unspecified hypotension type (2) Hypothyroidism: Qualified Code: E89.0 - Postoperative hypothyroidism Leo Suresh DO Jan 07, 2017 17:36
--- NOTE | 2017-01-07 22:46 | HHI.PR ---
Subjective Remarks Feeling ok Objective Vital Signs Date Time Temp Pulse Resp B/P Pulse Ox O2 Delivery O2 Flow Rate FiO2 01/07/17 19:00 98.6 84 20 132/73 95 01/07/17 18:00 82 01/07/17 17:00 74 01/07/17 16:00 76 01/07/17 15:00 78 01/07/17 15:00 97.8 79 20 122/78 99 01/07/17 14:00 78 01/07/17 13:00 92 01/07/17 12:00 79 01/07/17 11:00 98.3 87 20 122/78 98 01/07/17 11:00 77 01/07/17 10:00 82 01/07/17 09:00 71 01/07/17 08:00 87 01/07/17 07:00 70 01/07/17 07:00 98.4 75 20 121/83 100 01/07/17 06:00 70 01/07/17 05:00 68 01/07/17 04:00 73 14 117/78 96 01/07/17 04:00 72 01/07/17 03:00 74 01/07/17 02:00 72 01/07/17 01:00 80 01/07/17 00:59 98.6 77 14 116/74 97 01/07/17 00:00 80 01/06/17 23:00 74 I/O 01/06/17 01/06/17 01/06/17 01/07/17 01/07/17 01/07/17 07:00 15:00 23:00 07:00 15:00 23:00 Intake Total 240 ml 960 ml 480 ml 1080 ml Balance 240 ml 960 ml 480 ml 1080 ml Intake Oral 240 ml 960 ml 480 ml 1080 ml # Voids 3 3 2 4 # Bowel Movements 0 0 Result Diagram: 01/05/17 0329 01/05/179 Imaging Alert, fully oriented Lungs: ventilated Heart: S1, S2 regular Abdomen: soft, no mass Ext: no edema Vital Signs Date Time Temp Pulse Resp B/P Pulse Ox O2 Delivery O2 Flow Rate FiO2 01/07/17 19:00 98.6 84 20 132/73 95 01/07/17 18:00 82 01/07/17 17:00 74 01/07/17 16:00 76 01/07/17 15:00 78 01/07/17 15:00 97.8 79 20 122/78 99 01/07/17 14:00 78 01/07/17 13:00 92 01/07/17 12:00 79 01/07/17 11:00 98.3 87 20 122/78 98 01/07/17 11:00 77 01/07/17 10:00 82 01/07/17 09:00 71 01/07/17 08:00 87 01/07/17 07:00 70 01/07/17 07:00 98.4 75 20 121/83 100 01/07/17 06:00 70 01/07/17 05:00 68 01/07/17 04:00 73 14 117/78 96 01/07/17 04:00 72 01/07/17 03:00 74 01/07/17 02:00 72 01/07/17 01:00 80 01/07/17 00:59 98.6 77 14 116/74 97 01/07/17 00:00 80 01/06/17 23:00 74 Current Medications Medications (Trade) Dose Ordered Sig/Adelfo Route Start Time Stop Time Status Last Admin (NS 1000 ml Inj) 1,000 ml @ 100 mls/hr Q10H IV 01/04/17 12:29 01/07/17 20:29 (NS Flush) 2 ml UNSCH PRN IV FLUSH 01/04/17 12:30 (NS Flush) 2 ml BID IV FLUSH 01/04/17 21:00 01/07/17 21:23 (Tylenol) 650 mg Q4H PRN PO 01/04/17 12:30 01/07/17 14:36 (Zofran Inj) 4 mg Q6H PRN IVP 01/04/17 12:30 (Lovenox Inj) 40 mg Q24H SQ 01/04/17 13:00 Hold 01/06/17 12:41 (Josi-Colace) 1 tab BID PO 01/04/17 21:00 01/07/17 21:23 (Milk Of Magnesia Liq) 30 ml Q12H PRN PO 01/04/17 12:30 (Senokot) 17.2 mg Q12H PRN PO 01/04/17 12:30 (Dulcolax Supp) 10 mg DAILY PRN RECTAL 01/04/17 12:30 (Lactulose Liq) 30 ml DAILY PRN PO 01/04/17 12:30 (Theragran) 1 tab DAILY PO 01/05/17 09:00 (Synthroid) 112 mcg DAILY@07 PO 01/05/17 04:20 01/07/17 04:24 (Prinivil) 20 mg DAILY PO 01/04/17 22:00 Hold 01/04/17 21:55 (Aspirin Chew) 81 mg DAILY CHEW 01/05/17 09:00 01/07/17 07:08 (Lopressor) 12.5 mg Q12HR PO 01/04/17 22:45 Hold 01/06/17 08:40 (Flexeril) 10 mg Q8HR PO 01/06/17 12:00 01/07/17 21:23 Tramadol HCl 50 mg 50 mg Q8HR PRN PO 01/06/17 11:30 01/06/17 21:39 Lactated Ringer's 1,000 ml @ 30 mls/hr Q24H PRN IV 01/06/17 23:15 01/09/17 23:14 (NS 500 ml Inj) 500 ml @ 30 mls/hr [id number] PRN IV 01/06/17 23:15 01/09/17 23:14 Assessment and Plan Problem List: (1) SVT (supraventricular tachycardia) Status: Acute Plan: No episode since hospitalization. Stable, EPS and ablation schedule for tomorrow. (2) Hypotension Status: Acute Plan: SBP 122 this morning Ok (3) Chest discomfort Status: Acute Plan: negative ETT. No chest pain reported Problem Qualifiers (1) Hypotension: Qualified Code: I95.9 - Hypotension, unspecified hypotension type Balta Martínez MD Jan 07, 2017 22:45
[2017-01-08] VITALS (22 sets, daily range): BP systolic 114–132; BP diastolic 63–88; PULSE 68–106; RESP 16–20; TEMP 98–98.6; O2SAT 93–100
[2017-01-08] MEDS: traMADol HCL 50 MG TAB PO PRN (03:47)
[2017-01-08] MEDS: LEVOTHYROXINE SODIUM 112 MCG TAB PO SCH (04:28)
[2017-01-08] MEDS: CYCLOBENZAPRINE HCL 10 MG TAB PO SCH ×3 (06:16→20:32)
[2017-01-08] MEDS: ASPIRIN 81 MG CHEW TAB CHEW SCH (06:44)
[2017-01-08] MEDS: SODIUM CHLORIDE 0.9% FLUSH 10 ML FLUSH IV FLUSH SCH ×2 (06:45→20:32)
[2017-01-08] MEDS: DOCUSATE SODIUM 50 MG/SENNA 8.6 MG TAB PO SCH ×2 (06:46→20:32)
[2017-01-08] MEDS: MULTIVITAMIN TAB PO SCH (06:47)
[2017-01-08] MEDS ORDERED: ISOPROTERENOL HCL 1 MG/5 ML AMP ONE (07:28)
[2017-01-08] MEDS ORDERED: oxyCODONE/ACETAMINOPHEN 5 MG/325 MG TAB PO PRN ×2 (08:30)
[2017-01-08] MEDS ORDERED: BACITRACIN OINT 0.9 GM PKT TOP ONE (08:30)
[2017-01-08] MEDS ORDERED: ONDANSETRON HCL 4 MG/2 ML VIAL IV PRN (08:30)
[2017-01-08] MEDS ORDERED: SODIUM CHLOR 0.9% 250 ML INJ 250 ML IV PRN (08:30)
[2017-01-08] MEDS ORDERED: LIDOCAINE HCL 1% 50 ML VIAL INFIL PRN (08:30)
[2017-01-08] MEDS ORDERED: LORazepam 2 MG/ML VIAL IV PRN (08:30)
[2017-01-08] MEDS ORDERED: ATROPINE SULFATE 1 MG/ML VIAL IV PRN (08:30)
[2017-01-08] MEDS ORDERED: METOCLOPRAMIDE HCL 10 MG/2 ML VIAL IV PRN (08:30)
[2017-01-08] MEDS ORDERED: PROPOFOL 200 MG/20 ML AMP IV ONE (09:59)
[2017-01-08] MEDS ORDERED: DO NOT ADM ANY ANTICOAGULANT DRUGS PRN (11:00)
--- NOTE | 2017-01-08 11:09 | HHI.PR ---
Subjective Remarks Follow-up for symptomatic supraventricular tachycardia. Patient underwent EP study and ablation today. She is currently on bedrest until 11 AM. No chest pain, shortness of breath, fever or chills. Objective Vitals Vital Signs Date Time Temp Pulse Resp B/P Pulse Ox O2 Delivery O2 Flow Rate FiO2 01/08/17 10:00 74 01/08/17 09:00 98.4 86 20 128/88 100 01/08/17 09:00 86 01/08/17 07:00 98.5 87 20 132/86 97 01/08/17 07:00 77 01/08/17 06:01 77 01/08/17 05:00 70 01/08/17 04:50 20 01/08/17 04:00 72 01/08/17 03:00 68 01/08/17 03:00 98.6 76 20 115/77 96 01/08/17 02:00 72 01/08/17 01:09 72 01/08/17 00:00 72 01/07/17 23:00 78 01/07/17 23:00 98.6 79 20 111/64 96 01/07/17 22:00 74 01/07/17 21:00 76 01/07/17 20:00 78 01/07/17 19:00 80 01/07/17 19:00 98.6 84 20 132/73 95 01/07/17 18:00 82 01/07/17 17:00 74 01/07/17 16:00 76 01/07/17 15:00 78 01/07/17 15:00 97.8 79 20 122/78 99 01/07/17 14:00 78 01/07/17 13:00 92 01/07/17 12:00 79 I/O 01/07/17 01/07/17 01/07/17 01/08/17 01/08/17 01/08/17 07:00 15:00 23:00 07:00 15:00 23:00 Intake Total 480 ml 1080 ml 1514 ml Balance 480 ml 1080 ml 1514 ml Intake Oral 480 ml 1080 ml 720 ml IV Total 794 ml # Voids 2 4 5 # Bowel Movements 0 Result Diagram: 01/05/17 0329 01/05/17 0329 Imaging Last Impressions Myocardial Perfusion Scan Nuc Med 01/05/17 0000 Signed Impressions: Service Date/Time: Thursday, January 05, 2017 12:59 - CONCLUSION: 1. No reversible perfusion defects to suggest ischemia. 2. Normal ejection fraction. RISK CATEGORY: Low (<1%% Annual Mortality Rate) Artie Turcios MD Chest X-Ray 01/04/17 0945 Signed Impressions: Service Date/Time: Wednesday, January 04, 2017 10:11 - CONCLUSION: 1. No acute cardiopulmonary disease. Mina Velasquez MD Objective Remarks GENERAL: Alert, oriented x 3, NAD. SKIN: Warm and dry. HEAD: Normocephalic. EYES: No scleral icterus. No injection or drainage. NECK: Supple, trachea midline. No JVD or lymphadenopathy. CARDIOVASCULAR: Regular rate and rhythm without murmurs, gallops, or rubs. RESPIRATORY: Breath sounds equal bilaterally. No accessory muscle use. GASTROINTESTINAL: Abdomen soft, non-tender, nondistended. MUSCULOSKELETAL: No cyanosis, or edema. BACK: Nontender without obvious deformity. No CVA tenderness. Procedures 01/08/2017 electrophysiology study and ablation. A/P Problem List: (1) SVT (supraventricular tachycardia) ICD Code: I47.1 Status: Acute (2) Hypotension ICD Code: I95.9 Status: Acute (3) Chest discomfort ICD Code: R07.89 Status: Acute (4) Elevated troponin ICD Code: R74.8 Status: Acute (5) Hypothyroidism ICD Code: E03.9 Status: Acute Assessment and Plan Ms. Pantoja is a 41 year old female with a history of thyroid cancer s/p thyroidectomy who was admitted to the hospital due to SVT, dizziness, lightheadedness, nausea. Patient underwent nuclear stress test on 01/05/2017 which did not show any abnormalities. - Supraventricular tachycardia, likely AVNRT. - Currently in normal sinus rhythm. - Electrophysiology study and ablation 01/08/2017. - On hold metoprolol 12.5 mg by mouth every 12 hours. - Continue aspirin 81 mg daily. - Cardiology is following. - Elevated troponins - likely due to supraventricular tachycardia. No chest pain. - History of recently diagnosed thyroid cancer - s/p Thyroidectomy. - Hemochromatosis - Patient is being followed by Dr. Luis Diaz. - Hypothyroidism - continue levothyroxine 112 g daily. - Chronic back pain, muscle spasm - Continue Flexeril 10 mg 3 times a day when necessary, tramadol 50 mg every 8 hours when necessary Full code. Lovenox on hold. Likely discharge 01/09/2017 if cleared by cardiology. Problem Qualifiers (1) Hypotension: Qualified Code: I95.9 - Hypotension, unspecified hypotension type (2) Hypothyroidism: Qualified Code: E89.0 - Postoperative hypothyroidism Augie Shaw DO Jan 08, 2017 11:09 am
--- NOTE | 2017-01-08 13:06 | MA ---
cc: YAMILETH MENARD M.D., HANSCY M.D. DATE 01/08/2017 PROCEDURE PERFORMED Electrophysiology study, CS cannulation, 3-D mapping and radiofrequency ablation of AV sukhwinder reentrant tachycardia, repeat electrophysiology study on Isuprel infusion. INDICATIONS FOR PROCEDURE Ms. Pantoja is a 41-year-old female with frequent episodes of tachyarrhythmia, was at the emergency room, tachyarrhythmia terminated with adenosine, referred for electrophysiology study and ablation. The risks, the nature and the benefit of the procedure are clearly stated to her. The risks include pneumothorax, cardiac perforation, stroke, need for open heart surgery and even . The patient understood and agreed to proceed. PROCEDURE After written informed consent was obtained, the patient was brought to the EP Lab where she was prepped and draped in the usual sterile fashion. Conscious sedation was initiated and maintained throughout the procedure by anesthesiologist. Once sedation was verified, the left and right inguinal area was anesthetized with 2% Xylocaine. Using modified Seldinger technique, the left femoral vein was cannulated on three occasions, three guidewires were advanced over the wire, three 5-Ghanaian Hemaquets were advanced. Then the right femoral vein was cannulated on two occasions, two guidewires were advanced. Over the wire a 6 and an 8-Ghanaian Hemaquet were advanced. Then under fluoroscopic guidance through the 5 and 6-Ghanaian Hemaquet, four 5-Ghanaian Marquis curved quadripolar electrophysiology catheters were advanced and placed on the His, upper right atrium, coronary sinus and right ventricular apex. Basic interval was measured. They were within normal limits. At this point atrial pacing protocol was performed. Atrial pacing protocol consisted of incremental atrial pacing as well as program stimulation with 110 cycle length and up to one extrastimuli delivered. During atrial pacing protocol, supraventricular tachyarrhythmia of intracardiac characteristic of AV sukhwinder reentrant tachycardia was induced. He was pace terminated, then was subsequently induced. Then ventricular pacing protocol was performed. There was VA conduction and it was concentric. Through the 8-Ghanaian Hemaquet, a Cordis-Garcia D-curve 4-mm mapping and radiofrequency ablation catheter was advanced. Using Nintu Oy endocardial solution mapping system, a three-dimensional configuration of the right atrium was obtained. Point were taken at the SVC, TV6, CS and His. Then the catheter was placed at the tricuspid valve annulus. When a big V and a small trifurcated A observed, radiofrequency energy was delivered. The patient went into junctional rhythm. Further burn was delivered in the area. Then atrial pacing protocol was performed again. No jump, no echo beat observed. Wenckebach was around 380 milliseconds at this point. Then ventricular pacing protocol was performed. No tachyarrhythmia was induced. Then Isuprel infusion was initiated. Atrial and ventricular pacing protocol was repeated. Again no tachyarrhythmia was induced. At that point all catheters and Hemaquets were removed. The patient is going to be transferred to the recovery room. No incident reported. The patient tolerated the procedure. Blood loss minimal. 1. ELECTROCARDIOGRAM: At baseline the patient was in sinus. Postprocedure electrocardiogram was unchanged. 2. BASIC INTERVAL: Base cycle length was around 740, AH was at 98and HV was around 50 milliseconds. 3. ATRIAL PACING PROTOCOL: During atrial pacing protocol, supraventricular tachyarrhythmia of intracardiac characteristic of A-V sukhwinder reentrant tachycardia was induced. Post-ablation Wenckebach was around 380 milliseconds. 4. VENTRICULAR PACING PROTOCOL: There was VA conduction. It was concentric. No tachyarrhythmia was induced. 5. TACHYARRHYTHMIA: A-V sukhwinder reentrant tachycardia was induced. It was mapped and ablated. Ablation was successful. CONCLUSION Successful electrophysiology study, mapping and radiofrequency ablation of A-V sukhwinder reentrant tachycardia. COMMENT AND RECOMMENDATIONS The patient is going to be transferred to the recovery room. He will be observed and when stable can be discharged home. Balta Martínez MD HS/SSB /12:11 PM /12:55 PM
[2017-01-08] MEDS: SODIUM CHLOR 0.9% 1000 ML INJ 1,000 ML IV SCH (16:29)
--- NOTE | 2017-01-08 18:59 | EKG ---
Date Performed: 01/08/2017 Time Performed: 10:08:00 PTAGE: 41 years EKG: Sinus rhythm . Since previous tracing, no significant change noted Poor R wave progression - probable normal varia nt Borderline ECG PREVIOUS TRACING : 01/04/2017 21.24 DOCTOR: Desean Sanches Interpretating Date/Time 01/08/2017 18:58:34
[2017-01-09] VITALS (15 sets, daily range): BP systolic 122–129; BP diastolic 73–92; PULSE 76–88; RESP 18–20; TEMP 98.1–98.6; O2SAT 98–100
[2017-01-09] MEDS: LEVOTHYROXINE SODIUM 112 MCG TAB PO SCH (03:18)
[2017-01-09] MEDS: CYCLOBENZAPRINE HCL 10 MG TAB PO SCH ×2 (03:18→14:00)
[2017-01-09] MEDS: DOCUSATE SODIUM 50 MG/SENNA 8.6 MG TAB PO SCH (08:09)
[2017-01-09] MEDS: MULTIVITAMIN TAB PO SCH (08:09)
[2017-01-09] MEDS: ACETAMINOPHEN 325 MG TAB PO PRN (08:09)
[2017-01-09] MEDS: ASPIRIN 81 MG CHEW TAB CHEW SCH (08:09)
[2017-01-09] MEDS: SODIUM CHLORIDE 0.9% FLUSH 10 ML FLUSH IV FLUSH SCH (08:10)
--- NOTE | 2017-01-09 09:53 | HHI.DS ---
Discharge Summary Admission Date Jan 04, 2017 at 11:14 am Discharge Date: Jan 09, 2017 Admitting Diagnosis SVT, elevated troponin, hypotension (1) SVT (supraventricular tachycardia) ICD Code: I47.1 Diagnosis: Principal (2) Hypotension ICD Code: I95.9 Diagnosis: Principal (3) Chest discomfort ICD Code: R07.89 Diagnosis: Principal (4) Elevated troponin ICD Code: R74.8 Diagnosis: Principal (5) Hypothyroidism ICD Code: E03.9 Diagnosis: Secondary Procedures 01/08/2017 Electrophysiology study, CS cannulation, 3-D mapping and radiofrequency ablation of AV sukhwinder reentrant tachycardia, repeat electrophysiology study on Isuprel infusion. Brief History - From Admission Written by Jeffrey Marcial, acting as scribe for Dr. Mina on 01/04/17 at 13: 22. This note was transcribed by scribe Jeffrey STORY. I, Dr. Brigid Mina personally performed the history, physical exam, and medical decision making; and confirmed the accuracy of the information in the transcribed note. Authenticated by Dr. Brigid Mina on 01/04/17 at 13:22. 41-year-old female with known history of thyroid cancer status post thyroidectomy, secondary hypothyroidism, hypertension, celiac disease, hemochromatosis who presented to hospital because of heart racing, lightheadedness, dizziness, chest discomfort, shortness of breath. The patient indicates that she is undergoing treatment for her hypothyroidism by joint setter in [place]. Patient indicates that they just suggested her thyroid medications from 88>112 g 2 weeks ago. She has not had follow- up laboratory studies done at this time. Over the last couple of days she has noticed that after she takes her thyroid medication at 4:20 AM every day a few hours later she starts developing chest discomfort, heart racing, lightheadedness, dizziness. She checked her heart rate and blood pressure with the machine home and she had a tachycardia and mild low blood pressure after a while it would resolve and return to normal. She takes her HUYEN inhibitor at 10: 00 at night and her thyroid medication at 420 every morning. This morning she had the same symptoms with a chest discomfort, heart racing, lightheadedness, dizziness, shortness of breath, nausea but no vomiting. She checked her blood pressure however she thought machine is broken because it was registering too low and her heart rate was really high. She notified her to bring her to the hospital for evaluation. Patient was found to have supraventricular tachycardia with heart rate 170s and blood pressure 57/39 the patient was chemically cardioverted with adenosine. Heart rate returned to normal and blood pressure was more appropriate after cardioversion. Laboratory studies do indicate significant elevation in the troponin. Heart rate has remained stable this time. ER physician did contact cardiology who agreed that the patient needed to be admitted to the main hospital. At time evaluating the patient she is feeling quite well. She is no longer experiencing heart racing, chest discomfort, lightheadedness, dizziness, shortness of breath. CBC/BMP: 01/05/17 0329 01/05/17 0329 Imaging Last Impressions Myocardial Perfusion Scan Nuc Med 01/05/17 0000 Signed Impressions: Service Date/Time: Thursday, January 05, 2017 12:59 - CONCLUSION: 1. No reversible perfusion defects to suggest ischemia. 2. Normal ejection fraction. RISK CATEGORY: Low (<1%% Annual Mortality Rate) Artie Turcios MD Chest X-Ray 01/04/17 0945 Signed Impressions: Service Date/Time: Wednesday, January 04, 2017 10:11 - CONCLUSION: 1. No acute cardiopulmonary disease. Mina Velasquez MD PE at Discharge GENERAL: Alert, oriented x 3, NAD. SKIN: Warm and dry. HEAD: Normocephalic. EYES: No scleral icterus. No injection or drainage. NECK: Supple, trachea midline. No JVD or lymphadenopathy. CARDIOVASCULAR: Regular rate and rhythm without murmurs, gallops, or rubs. RESPIRATORY: Breath sounds equal bilaterally. No accessory muscle use. GASTROINTESTINAL: Abdomen soft, non-tender, nondistended. MUSCULOSKELETAL: No cyanosis, or edema. BACK: Nontender without obvious deformity. No CVA tenderness. Pt update on day of discharge Patient is doing well. No acute concerns. She has remained in Normal Sinus Rhythm Hospital Course Ms. Pantoja is a 41 year old female with a history of thyroid cancer s/p thyroidectomy who was admitted to the hospital due to SVT, dizziness, lightheadedness, nausea. Patient underwent nuclear stress test on 01/05/2017 which did not show any abnormalities. - Supraventricular tachycardia, likely AVNRT. - Currently in normal sinus rhythm. - Electrophysiology study and ablation 01/08/2017. - On hold metoprolol 12.5 mg by mouth every 12 hours. - Continue aspirin 81 mg daily. - Cardiology is following. - Elevated troponins - likely due to supraventricular tachycardia. No chest pain. - History of recently diagnosed thyroid cancer - s/p Thyroidectomy. - Hemochromatosis - Patient is being followed by Dr. Luis Diaz. - Hypothyroidism - continue levothyroxine 112 g daily. - Chronic back pain, muscle spasm - Continue Flexeril 10 mg 3 times a day when necessary, tramadol 50 mg every 8 hours when necessary Full code. Pt Condition on Discharge: Good Discharge Disposition: Discharge Home Discharge Time: <= 30 minutes Discharge Instructions DIET: Follow Instructions for: Heart Healthy Diet Activities you can perform: Regular-No Restrictions Follow up Referrals: Cardiology - 3 Weeks with Balta Martínez MD PCP Follow-up - 1 Week Continued Medications: Levothyroxine (Synthroid) 112 Mcg Tab 112 MCG PO DAILY Thyroid #30 Ref 0 TAB Discontinued Medications: Lisinopril (Lisinopril) 2.5 Mg Tab 20 MG PO DAILY #30 Ref 0 TAB Multiple Vitamin (Multiple Vitamin) 1 Tab 1 TAB PO DAILY Nutritional Supplement Ref 0 TAB Augie Shaw DO Jan 09, 2017 09:53
--- NOTE | 2017-01-09 09:58 | EKG ---
Date Performed: 01/09/2017 Time Performed: 06:25:58 PTAGE: 41 years EKG: Sinus rhythm Normal ECG PREVIOUS TRACING : 01/08/2017 10.08 Compared to prior tracing no significant change DOCTOR: Ulices Velazquez Interpretating Date/Time 01/09/2017 09:57:29
== END 2017-01-09 14:55 | disposition home or self-care (01) | DRG 274 ==
LOC: PHED 09:25 → PHEDA 11:14 → HCIS 13:53
PROVIDERS: ADMIT Hospitalist; ATTEND Hospitalist
PROC: 4A023FZ Measurement of Cardiac Rhythm, Percutaneous Approach (ICD-10-PCS; 2017-01-08)
PROC: 4A0234Z Measurement of Cardiac Electrical Activity, Percutaneous Approach (ICD-10-PCS; 2017-01-08)
PROC: 02K83ZZ Map Conduction Mechanism, Percutaneous Approach (ICD-10-PCS; 2017-01-08)
PROC: 02583ZZ Destruction of Conduction Mechanism, Percutaneous Approach (ICD-10-PCS; principal; 2017-01-08 08:30)
DX: I47.1 Supraventricular tachycardia (principal); N17.9 Acute kidney failure, unspecified; I95.9 Hypotension, unspecified; R74.8 Abnormal levels of other serum enzymes; I10 Essential (primary) hypertension; K90.0 Celiac disease; E89.0 Postprocedural hypothyroidism; Z85.850 Personal history of malignant neoplasm of thyroid; R07.89 Other chest pain; E83.119 Hemochromatosis, unspecified; Z82.49 Family history of ischemic heart disease and other diseases of the circulatory system; Z83.3 Family history of diabetes mellitus; E66.9 Obesity, unspecified; G89.29 Other chronic pain; M62.838 Other muscle spasm; M54.9 Dorsalgia, unspecified; Z23 Encounter for immunization
CPT/HCPCS: 71010; 78452; 80048; 80053; 82550; 83735; 84439; 84443; 84481; 84484; 84702; 85025; 85610; 85730; 90732; 93005; 93017; 93306; 93613; 93623; 93653; 96361; 96374; A9502; C1730; C1732; C2630; J0153; J1650; J2785; J3010; J7030

== ENCOUNTER 2017-05-24 12:34 | Emergency (ER) | payer BC ==
[~2017-05-24] VITALS: Ht 167.6 cm; Wt 110.0 kg
[~2017-05-24 12:34] MED LIST: SYNT112T PO
[2017-05-24 12:36] VITALS: BP 165/85; PULSE 116; RESP 16; TEMP 98; O2SAT 99
[2017-05-24] MEDS ORDERED: LIDOCAINE HCL 1% 50 ML VIAL INFIL ONE (12:45)
[2017-05-24] MEDS ORDERED: LISI10TA3 PO (13:07)
[2017-05-24] MEDS ORDERED: ONDANSETRON ODT 4 MG TAB PO ONE (13:45)
[2017-05-24] MEDS ORDERED: oxyCODONE/ACETAMINOPHEN 5 MG/325 MG TAB PO ONE (13:45)
[2017-05-24] MEDS ORDERED: CIPR0.3S LEFT EAR (13:47)
--- NOTE | 2017-05-24 13:47 | PD ---
HPI Chief Complaint: ENT Complaint Time Seen by Provider: 13:30 Travel History International Travel<30 days: No Contact w/Intl Traveler<30days: No Traveled to known affect area: No History of Present Illness HPI 42-year-old female here with bug in the left ear X 30 minutes. Patient reports while doing yard work she felt an insect crawl into the left ear. She had immediate pain and came to the emergency department. PFSH Past Medical History Heart Rhythm Problems: Yes (SVT, resolved post ablation) Cancer: Yes (thyroid) Cardiovascular Problems: Yes (Ablasion, SVT) Diminished Hearing: No Gastrointestinal Disorders: Yes (hereditary hemochromatosis) Genitourinary: No Hypertension: Yes Musculoskeletal: No Psychiatric: No Reproductive: No Respiratory: No Migraines: Yes Thyroid Disease: Yes Tetanus Vaccination: < 5 Years Influenza Vaccination: Yes ?: Unknown Past Surgical History Cardiac Surgery: Yes (ablation for svt) Section: Yes (2002,2005) Other Surgery: Yes (thyroid, para thyroid) Social History Alcohol Use: Yes (three times a week) Tobacco Use: No Substance Use: No Allergies-Medications (Allergen,Severity, Reaction): Coded Allergies: gluten (Unverified Allergy, Severe, 05/24/17) tomato (Unverified Allergy, Severe, Cramping, 05/24/17) GI CRAMPIMG, GAS BLOAT, SWELLING IN HANDS BLISTERS IN MOUTH BLEEDING GUMS NO GLUTEN, CELIAC DISEASE pine nut (Unverified Allergy, Intermediate, Wheezing, 05/24/17) ALLERGY TO "PINE" Reported Meds & Prescriptions Reported Meds & Active Scripts Active [place] (Hydrocodone-Acetaminophen) 5 Mg-325 Mg Tab 1 Tab PO Q6H PRN Ciprodex Otic Drops (Ciprofloxacin-Dexamethasone Otic Drops) 0.3-0.1% Susp 4 Drop LEFT EAR BID Reported Lisinopril 10 Mg Tab 10 Mg PO DAILY Synthroid (Levothyroxine Sodium) 112 Mcg Tab 112 Mcg PO DAILY Review of Systems Except as stated in HPI: all other systems reviewed are Neg Physical Exam Narrative GENERAL: Well-nourished, well-developed patient. Patient moderate distress screaming in pain SKIN: Focused skin assessment warm/dry. HEAD: Normocephalic. EYES: No scleral icterus. No injection or drainage. EAR: Insect present in left canal. TM obscured. Mild canal swelling with small amount of blood in the canal. NECK: Supple, trachea midline. CARDIOVASCULAR: Regular rate and rhythm without murmurs, gallops, or rubs. RESPIRATORY: Breath sounds equal bilaterally. No accessory muscle use. Data Data Last Documented VS Vital Signs Date Time Temp Pulse Resp B/P (MAP) Pulse Ox O2 Delivery O2 Flow Rate FiO2 05/24/17 12:36 98.0 116 16 165/85 (111) 99 Orders Orders Lidocaine 1% Inj (50 Ml) (Xylocaine 1% I (05/24/17 12:45) Oxycodone-Acetamin 5-325 Mg (Percocet (05/24/17 13:45) Ondansetron Odt (Zofran Odt) (05/24/17 13:45) [facility] Medical Decision Making Medical Screen Exam Complete: Yes Emergency Medical Condition: Yes Differential Diagnosis Insect left ear canal, TM perforation Narrative Course 42-year-old female here with insect in the left ear canal. Patient is in moderate amount of pain and discomfort. Insect removal was attempted with small hemostats. The insects exoskeleton is quite soft and came apart in pieces. Full removal of insect not possible in the ER. The TM is completely obscured by the insect. Small amount of blood noted in the canal. This could be caused by trauma to the canal itself or a TM perforation. Retained insect and possible TM perforation versus canal trauma was discussed with on-call ENT Dr. Spear who recommends putting the patient on Ciprodex otic drops, pain medication and have her follow-up with him in the office on Saturday. This was discussed with patient and family. They agree to follow up. Physician Communication Physician Communication Spoke with Dr. Zuleta dean of instruction ENT he recommends putting patient on Ciprodex pain medication and have her follow-up in office on Saturday. Diagnosis Primary Impression: Foreign body in left ear Qualified Codes: T16.2XXA - Foreign body in left ear, initial encounter Referrals: Pedro Spear MD Additional Instructions: Use antibiotic drops as directed. To the [id number] Motrin as needed for pain. Take the hydrocodone as needed for severe pain. Follow-up with Dr. Spear on Saturday in his office Scripts Hydrocodone-Acetaminophen ([place]) 5 Mg-325 Mg Tab 1 TAB PO Q6H Y for PAIN, #12 TAB 0 Refills Prov: Jamshid Suresh MD 05/24/17 Ciprofloxacin-Dexamethasone Otic Drops (Ciprodex Otic Drops) 0.3-0.1% Susp 4 DROP LEFT EAR BID for Infection, #1 BOTTLE 0 Refills Prov: Geraldine Quintanilla 05/24/17 Disposition: 01 DISCHARGE HOME Condition: Stable Geraldine Quintanilla May 24, 2017 13:47
[2017-05-24] MEDS ORDERED: NORC5TAB PO (13:48)
== END 2017-05-24 14:00 | disposition home or self-care (01) ==
LOC: PHEFT 12:34
DX: T16.2XXA Foreign body in left ear, initial encounter (principal)
CPT/HCPCS: 69200